=== PATIENT | male | born 1935 | race African-American/Black ===

== ENCOUNTER 2017-06-29 10:37 | Inpatient (IN) | payer MEDICARE ==
[~2017-06-29] VITALS: Ht 188 cm; Wt 81.9 kg
[2017-06-29 11:01] VITALS: BP 127/69; PULSE 78; RESP 15; TEMP 100.7; O2SAT 97
[2017-06-29 11:05] VITALS: BP 127/69; PULSE 78; RESP 15; TEMP 100.7; O2SAT 97
--- NOTE | 2017-06-29 11:13 | PD ---
HPI Chief Complaint: General Weakness Time Seen by Provider: 10:46 Travel History International Travel<30 days: No Contact w/Intl Traveler<30days: No Traveled to known affect area: No History of Present Illness HPI 81yo M with PMH of dementia, pace maker, HTN, DM brought in by daughter for multiple falls. Pt has been having generalized weakness and found on the floor at 4am this morning. Daughter said usually he is able to walk with walker but today, she had to physically assist him and he fell another time, an hour prior to arrival. Pt is AAOx2. Denies any chest pain, sob, n/v, abdominal pain, dysuria, hematuria, focal weakness or numbness. Pt found to have low fever here. PFSH Past Medical History Cardiovascular Problems: Yes (PACEMAKER) Diabetes: Yes Social History Tobacco Use: No Allergies-Medications (Allergen,Severity, Reaction): Coded Allergies: No Known Allergies (Unverified , 06/29/17) Reported Meds & Prescriptions Reported Meds & Active Scripts Active Reported Lopressor (Metoprolol Tartrate) 50 Mg Tab 25 Mg PO BID Eliquis (Apixaban) 5 Mg Tab 5 Mg PO DAILY Senna-Tabs (Sennosides) 8.6 Mg Tab 8.6 Mg PO HS Review of Systems Except as stated in HPI: all other systems reviewed are Neg Physical Exam Narrative GENERAL: 81yo M in mild distress. SKIN: Focused skin assessment warm/dry. HEAD: Atraumatic. Normocephalic. EYES: Pupils equal and round. No scleral icterus. No injection or drainage. ENT: No nasal bleeding or discharge. Mucous membranes pink and moist. NECK: Trachea midline. No JVD. CARDIOVASCULAR: Regular rate and rhythm. No murmur appreciated. RESPIRATORY: No accessory muscle use. Clear to auscultation. Breath sounds equal bilaterally. GASTROINTESTINAL: Abdomen soft, non-tender, nondistended. MUSCULOSKELETAL: No obvious deformities. No clubbing. No cyanosis. No edema. NEUROLOGICAL: Awake and alert. No obvious cranial nerve deficits. Motor grossly within normal limits. Normal speech. Data Data Last Documented VS Vital Signs Date Time Temp Pulse Resp B/P (MAP) Pulse Ox O2 Delivery O2 Flow Rate FiO2 06/29/17 11:05 100.7 78 15 127/69 (88) 97 Room Air Orders Orders Complete Blood Count With Diff (06/29/17 11:01) Comprehensive Metabolic Panel (06/29/17 11:01) Prothrombin Time / Inr (Pt) (06/29/17 11:01) Act Partial Throm Time (Ptt) (06/29/17 11:01) Troponin I (06/29/17 11:01) Ct Brain W/O Iv Contrast(Rout) (06/29/17 ) Urinalysis - C+S If Indicated (06/29/17 11:01) Magnesium (Mg) (06/29/17 11:01) Lactic Acid Sepsis Protocol (06/29/17 11:13) Blood Culture (06/29/17 11:13) Creatine Kinase (Cpk) (06/29/17 11:13) Acetaminophen (Tylenol) (06/29/17 11:15) Sodium Chlorid 0.9% 500 Ml Inj (Ns 500 M (06/29/17 11:15) CKMB (06/29/17 11:05) CKMB% (06/29/17 11:05) Urine Culture (06/29/17 12:45) Admit Order (Ed Use Only) (06/29/17 13:41) Ceftriaxone Inj (Rocephin Inj) (06/29/17 15:00) Vital Signs (Adult) Q4H (06/29/17 13:36) Activity Oob With Assistance (06/29/17 13:36) Sodium Chlor 0.9% 1000 Ml Inj (Ns 1000 M (06/29/17 14:00) Sodium Chloride 0.9% Flush (Ns Flush) (06/29/17 13:45) Sodium Chloride 0.9% Flush (Ns Flush) (06/29/17 21:00) Acetaminophen (Tylenol) (06/29/17 13:45) Ondansetron Inj (Zofran Inj) (06/29/17 13:45) Temazepam (Restoril) (06/29/17 13:45) Resp Oxygen Arnaldo C Titrat 1-4 L (06/29/17 ) Pt Request For Service (06/29/17 13:36) Enoxaparin Inj (Lovenox Inj) (06/29/17 15:00) Naloxone Inj (Narcan Inj) (06/29/17 13:45) Magnesium Hydroxide Liq (Milk Of Magnesi (06/29/17 13:45) Sennosides (Senokot) (06/29/17 13:45) Bisacodyl Supp (Dulcolax Supp) (06/29/17 13:45) Lactulose Liq (Lactulose Liq) (06/29/17 13:45) Admit To Inpatient (06/29/17 ) Inpatient Certification (06/29/17 ) Blood Glucose Goal (Criteria) (06/29/17 13:36) Hypoglycemia 70 Mg/Dl Or < (06/29/17 13:36) Notify Dr: Other (06/29/17 13:36) Dextrose 50% In Ethel (Vial) Inj (D50w (Vi (06/29/17 13:45) Glucagon Inj (Glucagon Inj) (06/29/17 13:45) Insulin Aspart Supplemtl Scale (Novolog (06/29/17 17:00) Diet 1800 Ada Cons Carb (06/29/17 Lunch) Labs Laboratory Tests Test 06/29/17 11:05 06/29/17 12:45 White Blood Count 10.4 TH/MM3 Red Blood Count 3.44 MIL/MM3 Hemoglobin 10.8 GM/DL Hematocrit 31.3 % Mean Corpuscular Volume 91.0 FL Mean Corpuscular Hemoglobin 31.5 PG Mean Corpuscular Hemoglobin Concent 34.6 % Red Cell Distribution Width 14.2 % Platelet Count 160 TH/MM3 Mean Platelet Volume 9.6 FL Neutrophils (%) (Auto) 83.4 % Lymphocytes (%) (Auto) 6.1 % Monocytes (%) (Auto) 9.6 % Eosinophils (%) (Auto) 0.4 % Basophils (%) (Auto) 0.5 % Neutrophils # (Auto) 8.6 TH/MM3 Lymphocytes # (Auto) 0.6 TH/MM3 Monocytes # (Auto) 1.0 TH/MM3 Eosinophils # (Auto) 0.0 TH/MM3 Basophils # (Auto) 0.1 TH/MM3 CBC Comment DIFF FINAL Differential Comment Prothrombin Time 11.5 SEC Prothromb Time International Ratio 1.1 RATIO Activated Partial Thromboplast Time 29.9 SEC Blood Urea Nitrogen 31 MG/DL Creatinine 1.73 MG/DL Random Glucose 141 MG/DL Total Protein 7.6 GM/DL Albumin 3.2 GM/DL Calcium Level 8.7 MG/DL Magnesium Level 1.7 MG/DL Alkaline Phosphatase 138 U/L Aspartate Amino Transf (AST/SGOT) 25 U/L Alanine Aminotransferase (ALT/SGPT) 15 U/L Total Bilirubin 0.4 MG/DL Sodium Level 138 MEQ/L Potassium Level 4.2 MEQ/L Chloride Level 106 MEQ/L Carbon Dioxide Level 25.3 MEQ/L Anion Gap 7 MEQ/L Estimat Glomerular Filtration Rate 46 ML/MIN Lactic Acid Level 1.1 mmol/L Total Creatine Kinase 692 U/L Creatine Kinase MB 10.3 NG/ML Creatine Kinase MB % 1.5 % Troponin I 0.08 NG/ML Urine Color YELLOW Urine Turbidity HAZY Urine pH 6.0 Urine Specific [place] 1.012 Urine Protein 100 mg/dL Urine Glucose (UA) NEG mg/dL Urine Ketones NEG mg/dL Urine Occult Blood MOD Urine Nitrite NEG Urine Bilirubin NEG Urine Urobilinogen LESS THAN 2.0 MG/DL Urine Leukocyte Esterase LARGE Urine RBC 4 /hpf Urine WBC 58 /hpf Urine Squamous Epithelial Cells <1 /hpf Urine Bacteria MANY /hpf Microscopic Urinalysis Comment CULTURE INDICATED MDM Medical Decision Making Medical Screen Exam Complete: Yes Emergency Medical Condition: Yes Interpretation(s) EKG: Paced rhythm at 76bpm. No concordance. Differential Diagnosis Failure to thrive vs. rhabdomyolysis vs. CVA vs. electrolyte abnormality Narrative Course 81yo M with generalized weakness and 2 fall since this morning. Said he normally walks with walker but today unable to. Pt with low fever at 100.7F here. Pt given acetaminophen 500mg PO. Daughter said pt's and he has been living with her since October 2016. Said she no longer can take care of him. Labs reviewed, no leukocytosis. H/H 10.8/31.3. No prior to compare. Lactic acid normal. BUN/creatinine elevated at 31/1.73. No prior to compare. Troponin mildly elevated at 0.08. Pt has no chest pain or sob but feels generalized weakness. CPK mildly elevated at 692. Pt given NS IVF. CT brain showed cerebral atrophy and chronic ischemic small vessel mastopathy. Discussed with Dr. Sewell and accepted to his service. Diagnosis Primary Impression: UTI (urinary tract infection) Qualified Codes: N39.0 - Urinary tract infection, site not specified; R31.9 - Hematuria, unspecified Additional Impression: DOMINGO (acute kidney injury) Admitting Information Admitting Physician Requests: Admit Paula Gaffney DO Jun 29, 2017 11:13
[2017-06-29] MEDS ORDERED: ACETAMINOPHEN 500 MG CPLT PO ONE (11:15)
[2017-06-29] MEDS ORDERED: SODIUM CHLORID 0.9% 500 ML INJ 500 ML IV ONE (11:15)
[2017-06-29 11:30] LABS: AUTOMATED NEUTROPHIL # 8.6 TH/MM3 (1.8-7.7); BASOPHIL # 0.1 TH/MM3 (0-0.2); BASOPHIL % 0.5 % (0.0-2.0); EOSINOPHIL % 0.4 % (0.0-4.0); HEMATOCRIT 31.3 % (39.0-51.0); HEMO FLAGS DIFF FINAL; LYMPH % 6.1 % (9.0-44.0); LYMPHOCYTE # 0.6 TH/MM3 (1.0-4.8); MEAN CORPUSCULAR HEMOGLOBIN 31.5 PG (27.0-34.0); MEAN CORPUSCULAR HGB CONC 34.6 % (32.0-36.0); MONO % 9.6 % (0.0-8.0); NEUT % 83.4 % (16.0-70.0); PLATELET COUNT 160 TH/MM3 (150-450); RED BLOOD COUNT 3.44 MIL/MM3 (4.50-5.90); RED CELL DISTRIBUTION WIDTH 14.2 % (11.6-17.2); WHITE BLOOD COUNT 10.4 TH/MM3 (4.0-11.0)
[2017-06-29 11:38] LABS: APTT (PATIENT) 29.9 SEC (24.3-30.1); INTERNATIONAL NORMALIZED RATIO 1.1 RATIO; PROTHROMBIN TIME - PATIENT 11.5 SEC (9.8-11.6)
[2017-06-29 11:47] LABS: ALT (GPT) 15 U/L (12-78); ANION GAP 7 MEQ/L (5-15); AST (GOT) 25 U/L (15-37); BICARBONATE 25.3 MEQ/L (21.0-32.0); BLOOD UREA NITROGEN 31 MG/DL (7-18); CHLORIDE 106 MEQ/L (98-107); GLOMERULAR FILTRATION RATE 46 ML/MIN (>89); MAGNESIUM 1.7 MG/DL (1.5-2.5); POTASSIUM 4.2 MEQ/L (3.5-5.1); SODIUM (NA) 138 MEQ/L (136-145)
[2017-06-29 11:51] LABS: ALKALINE PHOSPHATASE 138 U/L (45-117); TOTAL BILIRUBIN ADULT 0.4 MG/DL (0.2-1.0)
--- NOTE | 2017-06-29 12:03 | RADRPT ---
EXAM DATE/TIME: 06/29/2017 11:38 [facility] COMPARISON: No previous studies available for comparison. INDICATIONS : Generalized weakness and unsteady gate for 1 day. RADIATION DOSE: 56.36 CTDIvol (mGy) MEDICAL HISTORY : Diabetes mellitus type 1. Dementia. SURGICAL HISTORY : Pacemaker. ENCOUNTER: Initial ACUITY: 1 day PAIN SCALE: 5/10 LOCATION: cranial TECHNIQUE: Multiple contiguous axial images were obtained of the head. Using automated exposure control and adj ustment of the mA and/or kV according to patient size, radiation dose was kept as low as reasonably a chievable to obtain optimal diagnostic quality images. DICOM format image data is available electro nically for review and comparison. FINDINGS: There is marked central and cortical atrophy with dilatation of ventricular and sulcal spaces. Areas of low-attenuation throughout the white matter. There is no parenchymal hemorrhage, acute infarction or mass lesion identified. There are no extra-axial fluid collections appreciated. The posterior fo ssa is unremarkable with midline fourth ventricle. The portion of the orbits and paranasal sinuses v isualized are unremarkable. CONCLUSION: 1. Cerebral atrophy and chronic ischemic small vessel mastopathy. Roger De Los Santos MD on June 29, 2017 at 12:01 Board Certified Radiologist. This report was verified electronically.
[2017-06-29 12:04] LABS: CKMB 10.3 NG/ML (0.5-3.6)
[2017-06-29 13:16] LABS: BACTERIA, URINE MANY /hpf; BLOOD, URINE MOD (NEG); COMMENT (UR) CULTURE INDICATED; CULTURE IF INDICATED CULTURE INDICATED; GLUCOSE,URINE NEG (NEG); KETONE, URINE NEG (NEG); NITRITE,URINE NEG (NEG); SQUAMOUS EPITHELIAL CELL URINE <1 /hpf (0-5); URINE COLOR YELLOW (YELLW/STRAW)
[2017-06-29] MEDS ORDERED: SODIUM CHLORIDE 0.9% FLUSH 10 ML FLUSH IV FLUSH PRN (13:45)
[2017-06-29] MEDS ORDERED: GLUCAGON 1 MG/ML VIAL OTHER PRN (13:45)
[2017-06-29] MEDS ORDERED: MAGNESIUM HYDROXIDE SUSP 30 ML CUP PO PRN (13:45)
[2017-06-29] MEDS ORDERED: ONDANSETRON HCL 4 MG/2 ML VIAL IVP PRN (13:45)
[2017-06-29] MEDS ORDERED: BISACODYL 10 MG SUPP RECTAL PRN (13:45)
[2017-06-29] MEDS ORDERED: DEXTROSE 50% IN WATER 50 ML VIAL(D50) IV PUSH PRN (13:45)
[2017-06-29] MEDS ORDERED: NALOXONE HCL 0.4 MG/ML AMP IV PUSH PRN (13:45)
[2017-06-29] MEDS ORDERED: LACTULOSE SYRUP 20 GM/30 ML CUP PO PRN (13:45)
[2017-06-29] MEDS ORDERED: SENNOSIDES 8.6 MG TAB PO PRN (13:45)
[2017-06-29] MEDS ORDERED: TEMAZEPAM 15 MG CAP PO PRN (13:45)
--- NOTE | 2017-06-29 15:42 | RADRPT ---
EXAM DATE/TIME: 06/29/2017 14:53 [facility] COMPARISON: No previous studies available for comparison. INDICATIONS : Cough. MEDICAL HISTORY : Diabetes mellitus type I. Dementia. SURGICAL HISTORY : Pacemaker. ENCOUNTER: Initial ACUITY: 2 weeks PAIN SCORE: 0/10 LOCATION: Bilateral chest FINDINGS: A single view of the chest demonstrates the lungs to be symmetrically aerated without evidence of mas s, infiltrate or effusion. Uestionable nodule right upper lobe. Status post median sternotomy. Left-s ided pacemaker with 2 intact leads. The cardiomediastinal contours are unremarkable. Osseous structu res are intact. CONCLUSION: 1. No infiltrate. 2. Questionable nodule right upper lobe could be scapular density. Recommend PA and lateral views fro m earlier characterization. 3. Left-sided pacemaker and previous median sternotomy. Roger De Los Santos MD on June 29, 2017 at 15:39 Board Certified Radiologist. This report was verified electronically.
[2017-06-29 16:05] VITALS: BP 163/74; PULSE 82; RESP 18; TEMP 99.4; O2SAT 93
--- NOTE | 2017-06-29 16:11 | HHI.HP ---
HPI Service [facility] Primary Care Physician No Primary Care Physician Admission Diagnosis DOMINGO, UTI Diagnoses: Chief Complaint: Dementia, falls Travel History International Travel<30 Days: No Contact w/Intl Traveler <30 Da: No Traveled to Known Affected Are: No History of Present Illness Mr. Adams is a 81 year old male with a history of dementia, pacemaker, HTN, DM brought in by daughter for multiple falls. He has been having generalized weakness for two days prior to this admission. He has had some cough. No chest pain, no shortness of breath. He did have runny nose. Patient wakes up and follows commands but does not participate in this conversation much. Daughter at bedside. Patient did not have any dysuria, hematuria, changes in bowel or bladder habits. Review of Systems Except as stated in HPI: all other systems reviewed are Neg Past Family Social History Past Medical History Dementia Diabetes mellitus CAD s/p CABG. Knee surgery Prostate surgery Toes amputation. Past Surgical History CABG Pacemaker placement. Allergies: Coded Allergies: No Known Allergies (Unverified , 06/29/17) Family History No family history of Alzheimer's dementia. Social History Does not smoke, drink alcohol or illicit drugs. Physical Exam Vital Signs Vital Signs Date Time Temp Pulse Resp B/P (MAP) Pulse Ox O2 Delivery O2 Flow Rate FiO2 06/29/17 11:05 100.7 78 15 127/69 (88) 97 Room Air 06/29/17 11:01 100.7 78 15 127/69 (88) 97 Physical Exam GENERAL: This is a well-nourished, well-developed patient, in no apparent distress. SKIN: No rashes, ecchymoses or lesions. Cool and dry. HEAD: Atraumatic. Normocephalic. No temporal or scalp tenderness. EYES: Pupils equal round and reactive. Extraocular motions intact. No scleral icterus. No injection or drainage. ENT: Nose without bleeding, purulent drainage or septal hematoma. Throat without erythema, tonsillar hypertrophy or exudate. Uvula midline. Airway patent. NECK: Trachea midline. No JVD or lymphadenopathy. Supple, nontender, no meningeal signs. CARDIOVASCULAR: Regular rate and rhythm without murmurs, gallops, or rubs. RESPIRATORY: Clear to auscultation. Breath sounds equal bilaterally. No wheezes , rales, or rhonchi. GASTROINTESTINAL: Abdomen soft, non-tender, nondistended. No hepato-splenomegaly , or palpable masses. No guarding. MUSCULOSKELETAL: Extremities without clubbing, cyanosis, or edema. No joint tenderness, effusion, or edema noted. No calf tenderness. Negative Homans sign bilaterally. NEUROLOGICAL: Awake and alert. Cranial nerves II through XII intact. Motor and sensory grossly within normal limits. Five out of 5 muscle strength in all muscle groups. Normal speech. Laboratory Laboratory Tests Test 06/29/17 11:05 06/29/17 12:45 White Blood Count 10.4 Red Blood Count 3.44 Hemoglobin 10.8 Hematocrit 31.3 Mean Corpuscular Volume 91.0 Mean Corpuscular Hemoglobin 31.5 Mean Corpuscular Hemoglobin Concent 34.6 Red Cell Distribution Width 14.2 Platelet Count 160 Mean Platelet Volume 9.6 Neutrophils (%) (Auto) 83.4 Lymphocytes (%) (Auto) 6.1 Monocytes (%) (Auto) 9.6 Eosinophils (%) (Auto) 0.4 Basophils (%) (Auto) 0.5 Neutrophils # (Auto) 8.6 Lymphocytes # (Auto) 0.6 Monocytes # (Auto) 1.0 Eosinophils # (Auto) 0.0 Basophils # (Auto) 0.1 CBC Comment DIFF FINAL Differential Comment Prothrombin Time 11.5 Prothromb Time International Ratio 1.1 Activated Partial Thromboplast Time 29.9 Blood Urea Nitrogen 31 Creatinine 1.73 Random Glucose 141 Total Protein 7.6 Albumin 3.2 Calcium Level 8.7 Magnesium Level 1.7 Alkaline Phosphatase 138 Aspartate Amino Transf (AST/SGOT) 25 Alanine Aminotransferase (ALT/SGPT) 15 Total Bilirubin 0.4 Sodium Level 138 Potassium Level 4.2 Chloride Level 106 Carbon Dioxide Level 25.3 Anion Gap 7 Estimat Glomerular Filtration Rate 46 Lactic Acid Level 1.1 Total Creatine Kinase 692 Creatine Kinase MB 10.3 Creatine Kinase MB % 1.5 Troponin I 0.08 Urine Color YELLOW Urine Turbidity HAZY Urine pH 6.0 Urine Specific [place] 1.012 Urine Protein 100 Urine Glucose (UA) NEG Urine Ketones NEG Urine Occult Blood MOD Urine Nitrite NEG Urine Bilirubin NEG Urine Urobilinogen LESS THAN 2.0 Urine Leukocyte Esterase LARGE Urine RBC 4 Urine WBC 58 Urine Squamous Epithelial Cells <1 Urine Bacteria MANY Microscopic Urinalysis Comment CULTURE INDICATED Date/Time Source Procedure Growth Status 06/29/17 11:05 Blood Peripheral Aerobic Blood Culture Pending Received 06/29/17 11:05 Blood Peripheral Anaerobic Blood Culture Pending Received 06/29/17 12:45 Urine Clean Catch Urine Culture Pending Received Result Diagram: 06/29/17 1105 06/29/17 1105 Imaging Last Impressions Head CT 06/29/17 0000 Signed Impressions: Service Date/Time: Thursday, June 29, 2017 11:38 - CONCLUSION: 1. Cerebral atrophy and chronic ischemic small vessel mastopathy. Roger De Los Santos MD Chest X-Ray 06/29/17 0000 Signed Impressions: Service Date/Time: Thursday, June 29, 2017 14:53 - CONCLUSION: 1. No infiltrate. 2. Questionable nodule right upper lobe could be scapular density. Recommend PA and lateral views from earlier characterization. 3. Left-sided pacemaker and previous median sternotomy. Roger De Los Santos MD Caprini VTE Risk Assessment Caprini VTE Risk Assessment: Mod/High Risk (score >= 2) Caprini Risk Assessment Model Point Value = 1 Point Value = 2 Point Value = 3 Point Value = 5 Age 41-60 Minor surgery BMI > 25 kg/m2 Swollen legs Varicose veins or History of unexplained or recurrent spontaneous Oral contraceptives or hormone replacement Sepsis (< 1 month) Serious lung disease, including pneumonia (< 1 month) Abnormal pulmonary function Acute myocardial infarction Congestive heart failure (< 1 month) History of inflammatory bowel disease Medical patient at bed rest Age 61-74 Arthroscopic surgery Major open surgery (> 45 min) Laparoscopic surgery (> 45 min) Malignancy Confined to bed (> 72 hours) Immobilizing plaster cast Central venous access Age >= 75 History of VTE Family history of VTE Factor V Leiden Prothrombin [id number] Lupus anticoagulant Anticardiolipin antibodies Elevated serum homocysteine Heparin-induced thrombocytopenia Other congenital or acquired thrombophilia Stroke (< 1 month) Elective arthroplasty Hip, pelvis, or leg fracture Acute spinal cord injury (< 1 month) Prophylaxis Regimen Total Risk Factor Score Risk Level Prophylaxis Regimen 0-1 Low Early ambulation 2 Moderate Order ONE of the following: *Sequential Compression Device (SCD) *Heparin 5000 units SQ BID 3-4 Higher Order ONE of the following medications: *Heparin 5000 units SQ TID *Enoxaparin/Lovenox 40 mg SQ daily (WT < 150 kg, CrCl > 30 mL/min) *Enoxaparin/Lovenox 30 mg SQ daily (WT < 150 kg, CrCl > 10-29 mL/min) *Enoxaparin/Lovenox 30 mg SQ BID (WT < 150 kg, CrCl > 30 mL/min) AND/OR *Sequential Compression Device (SCD) 5 or more Highest Order ONE of the following medications: *Heparin 5000 units SQ TID (Preferred with Epidurals) *Enoxaparin/Lovenox 40 mg SQ daily (WT < 150 kg, CrCl > 30 mL/min) *Enoxaparin/Lovenox 30 mg SQ daily (WT < 150 kg, CrCl > 10-29 mL/min) *Enoxaparin/Lovenox 30 mg SQ BID (WT < 150 kg, CrCl > 30 mL/min) AND *Sequential Compression Device (SCD) Assessment and Plan Problem List: (1) Diabetes mellitus ICD Code: E11.9 - Type 2 diabetes mellitus without complications (2) Dementia ICD Code: F03.90 - Unspecified dementia without behavioral disturbance (3) Fall ICD Code: W19.XXXA - Unspecified fall, initial encounter (4) UTI (urinary tract infection) ICD Code: N39.0 - Urinary tract infection, site not specified Assessment and Plan Mr. Adams is a pleasant 81 year old male with a history of dementia, Diabetes mellitus who presents to the ED today due to generalized weakness for 2 days, falls and acute mental status change. - Acute encephalopathy - Generalized weakness - Possibly related infectious etiology such as UTI. - Will start patient on Ceftriaxone 1g Q24hrs. - Continue NS @100cc/hour. - Probable Urinary tract infection - Will start Ceftriaxone empirically. - Follow Urine C & S. - Diabetes mellitus - Continue Sliding scale insulin. Start Levemir 10 units QHS. Full code. Lovenox 40mg Q24hrs. Physician Certification 2 Midnight Certification Type: Admission for Inpatient Services Order for Inpatient Services The services are ordered in accordance with Medicare regulations or non- Medicare payer requirements, as applicable. In the case of services not specified as inpatient-only, they are appropriately provided as inpatient services in accordance with the 2-midnight benchmark. Estimated LOS (days): 2 days is the estimated time the patient will need to remain in the hospital, assuming treatment plan goals are met and no additional complications. Post-Hospital Plan: Not yet determined Camilla Sewell DO Jun 29, 2017 16:11
[2017-06-29] MEDS: SODIUM CHLOR 0.9% 1000 ML INJ 1,000 ML IV SCH (16:26)
[2017-06-29] MEDS: cefTRIAXone INJ 1,000 MG in SODIUM CHLORIDE 0.9% INJ 100 ML IV SCH (16:27)
[2017-06-29 16:30] VITALS: BP 124/69
[2017-06-29] MEDS: INSULIN ASPART SUPPLEMENTAL SCALE SQ SCH ×2 (17:00→21:00)
[2017-06-29] MEDS: ENOXAPARIN SODIUM 40 MG/0.4 ML SYRINGE SQ SCH (18:38)
[2017-06-29 20:30] VITALS: BP 176/78; PULSE 84; RESP 18; TEMP 100.2; O2SAT 97
[2017-06-29] MEDS: SODIUM CHLORIDE 0.9% FLUSH 10 ML FLUSH IV FLUSH SCH (21:00)
[2017-06-29] MEDS: INSULIN DETEMIR 100 UNITS/ML VIAL SQ SCH (21:00)
[2017-06-29] MEDS ORDERED: SENN8.6T36 PO (23:23)
[2017-06-29] MEDS ORDERED: APIX5TAB PO (23:24)
[2017-06-29] MEDS ORDERED: METO-309 PO (23:25)
[2017-06-30] VITALS (8 sets, daily range): BP systolic 117–179; BP diastolic 67–85; PULSE 64–87; RESP 17–20; TEMP 97.2–101.5; O2SAT 95–98
[2017-06-30] MEDS ORDERED: MONT10TA4 PO (01:03)
[2017-06-30] MEDS ORDERED: ALPR.25 PO (01:03)
[2017-06-30] MEDS ORDERED: LISI10TA3 PO (01:03)
[2017-06-30] MEDS ORDERED: FERR325T18 PO (01:03)
[2017-06-30] MEDS ORDERED: AMLO10TA2 PO (01:03)
[2017-06-30] MEDS ORDERED: FLUT1SPR5 EACH NARE (01:03)
[2017-06-30] MEDS ORDERED: DONE10TA7 PO (01:03)
[2017-06-30] MEDS ORDERED: LEXA10TA PO (01:03)
[2017-06-30] MEDS ORDERED: TAMS0.4C4 PO (01:03)
[2017-06-30] MEDS ORDERED: ALLO100T PO (01:03)
[2017-06-30] MEDS: ACETAMINOPHEN 325 MG TAB PO PRN ×2 (04:11→17:28)
[2017-06-30] MEDS: SENNOSIDES 8.6 MG TAB PO SCH (04:12)
[2017-06-30] MEDS: INSULIN ASPART SUPPLEMENTAL SCALE SQ SCH ×4 (08:00→20:33)
[2017-06-30 08:43] LABS: AUTOMATED NEUTROPHIL # 4.5 TH/MM3 (1.8-7.7); BASOPHIL % 0.6 % (0.0-2.0); EOSINOPHIL % 0.6 % (0.0-4.0); HEMATOCRIT 27.5 % (39.0-51.0); HEMO FLAGS DIFF FINAL; LYMPH % 14.5 % (9.0-44.0); LYMPHOCYTE # 0.9 TH/MM3 (1.0-4.8); MEAN CELL VOLUME 89.6 FL (80.0-100.0); MEAN CORPUSCULAR HEMOGLOBIN 31.1 PG (27.0-34.0); MEAN CORPUSCULAR HGB CONC 34.7 % (32.0-36.0); MONO % 14.1 % (0.0-8.0); NEUT % 70.2 % (16.0-70.0); PLATELET COUNT 142 TH/MM3 (150-450); RED BLOOD COUNT 3.07 MIL/MM3 (4.50-5.90); WHITE BLOOD COUNT 6.4 TH/MM3 (4.0-11.0)
[2017-06-30] MEDS: SODIUM CHLORIDE 0.9% FLUSH 10 ML FLUSH IV FLUSH SCH ×2 (09:00→20:32)
[2017-06-30 09:03] LABS: BICARBONATE 22.6 MEQ/L (21.0-32.0); POTASSIUM 3.4 MEQ/L (3.5-5.1)
[2017-06-30] MEDS: FLUTICASONE PROPIONATE 50 MCG/ACT 16 GM NASAL SPRAY EACH NARE SCH ×2 (09:56→20:34)
[2017-06-30] MEDS: SODIUM CHLOR 0.9% 1000 ML INJ 1,000 ML IV SCH ×3 (10:00→16:52)
[2017-06-30] MEDS: ALLOPURINOL 100 MG TAB PO SCH (10:10)
[2017-06-30] MEDS: ESCITALOPRAM OXALATE 10 MG TAB PO SCH (10:11)
[2017-06-30] MEDS: FERROUS SULFATE 325 MG (65 MG ELEMENTAL IRON) TAB PO SCH ×2 (10:11→16:53)
[2017-06-30] MEDS: LISINOPRIL 10 MG TAB PO SCH (10:12)
[2017-06-30] MEDS: METOPROLOL TARTRATE 25 MG TAB PO SCH ×2 (10:12→20:33)
--- NOTE | 2017-06-30 10:54 | HHI.PR ---
Subjective Remarks Follow-up for UTI, generalized weakness. Patient is resting in bed. Daughter is at bedside who states that patient is actually doing better. His cough is getting better. Patient continues to have persistent low-grade fever. Objective Vitals Vital Signs Date Time Temp Pulse Resp B/P (MAP) Pulse Ox O2 Delivery O2 Flow Rate FiO2 06/30/17 04:00 100.2 78 18 179/77 (111) 96 06/30/17 00:00 100.9 80 17 173/76 (108) 96 06/29/17 20:30 100.2 84 18 176/78 (110) 97 06/29/17 16:30 72 16 124/69 (87) 96 06/29/17 16:05 99.4 82 18 163/74 (103) 93 06/29/17 11:05 100.7 78 15 127/69 (88) 97 Room Air 06/29/17 11:01 100.7 78 15 127/69 (88) 97 I/O 06/29/17 06/29/17 06/29/17 06/30/17 06/30/17 06/30/17 07:00 15:00 23:00 07:00 15:00 23:00 Intake Total 500 ml 120 ml Output Total 300 ml 200 ml 200 ml Balance 500 ml -180 ml -200 ml -200 ml Intake Oral 120 ml IV Total 500 ml Output Urine Total 300 ml 200 ml 200 ml # Voids 1 # Bowel Movements 0 Result Diagram: 06/30/17 0805 06/30/17 0805 Imaging Last Impressions Head CT 06/29/17 0000 Signed Impressions: Service Date/Time: Thursday, June 29, 2017 11:38 - CONCLUSION: 1. Cerebral atrophy and chronic ischemic small vessel mastopathy. Roger De Los Santos MD Chest X-Ray 06/29/17 0000 Signed Impressions: Service Date/Time: Thursday, June 29, 2017 14:53 - CONCLUSION: 1. No infiltrate. 2. Questionable nodule right upper lobe could be scapular density. Recommend PA and lateral views from earlier characterization. 3. Left-sided pacemaker and previous median sternotomy. Roger De Los Santos MD Objective Remarks GENERAL: Alert, NAD. SKIN: Warm and dry. HEAD: Normocephalic. EYES: No scleral icterus. No injection or drainage. NECK: Supple, trachea midline. No JVD or lymphadenopathy. CARDIOVASCULAR: Regular rate and rhythm without murmurs, gallops, or rubs. RESPIRATORY: Breath sounds equal bilaterally. No accessory muscle use. GASTROINTESTINAL: Abdomen soft, non-tender, nondistended. MUSCULOSKELETAL: No cyanosis, or edema. BACK: Nontender without obvious deformity. No CVA tenderness. Procedures None. A/P Problem List: (1) Diabetes mellitus ICD Code: E11.9 - Type 2 diabetes mellitus without complications (2) Dementia ICD Code: F03.90 - Unspecified dementia without behavioral disturbance (3) Fall ICD Code: W19.XXXA - Unspecified fall, initial encounter (4) UTI (urinary tract infection) ICD Code: N39.0 - Urinary tract infection, site not specified Assessment and Plan Mr. Adams is a pleasant 81 year old male with a history of dementia, Diabetes mellitus who presents to the ED today due to generalized weakness for 2 days, falls and acute mental status change. - Acute encephalopathy - Generalized weakness - Possibly related infectious etiology such as UTI. - Continue Ceftriaxone 1g Q24hrs. - Continue NS @100cc/hour. - Probable bronchitis - Persistent fever - Obtain Flu screen. - Will empirically start Levaquin 750mg Qday. - Probable Urinary tract infection - Cotninue Ceftriaxone empirically. - Follow Urine C & S. - Diabetes mellitus - Continue Sliding scale insulin. Levemir 10 units QHS. Full code. Lovenox 40mg Q24hrs. Camilla Sewell DO Jun 30, 2017 10:54 am
[2017-06-30] MEDS: LEVOFLOXACIN 750 MG TAB PO SCH (11:51)
--- NOTE | 2017-06-30 14:18 | EKG ---
Date Performed: 06/29/2017 Time Performed: 10:46:52 PTAGE: 81 years EK% AV SEQUENTIAL PACING ABNORMAL RHYTHM ECG NO PREVIOUS TRACING DOCTOR: Ovidio Camejo Interpretating Date/Time 06/30/2017 14:17:07
[2017-06-30] MEDS: cefTRIAXone INJ 1,000 MG in SODIUM CHLORIDE 0.9% INJ 100 ML IV SCH (15:03)
[2017-06-30] MEDS: ENOXAPARIN SODIUM 40 MG/0.4 ML SYRINGE SQ SCH (15:07)
[2017-06-30] MEDS: BENZOCAINE 6 MG/MENTHOL 10 MG LOZENGE BUCCAL PRN (16:54)
[2017-06-30] MEDS: DONEPEZIL HCL 5 MG TAB PO SCH (20:32)
[2017-06-30] MEDS: TAMSULOSIN HCL 0.4 MG CAP PO SCH (20:32)
[2017-06-30] MEDS: MONTELUKAST SODIUM 10 MG TAB PO SCH (20:33)
[2017-06-30] MEDS: INSULIN DETEMIR 100 UNITS/ML VIAL SQ SCH (20:34)
[2017-07-01] VITALS (10 sets, daily range): BP systolic 135–165; BP diastolic 66–79; PULSE 59–67; RESP 18–19; TEMP 97.3–99.9; O2SAT 96–98
[2017-07-01] MEDS: SODIUM CHLOR 0.9% 1000 ML INJ 1,000 ML IV SCH (03:31)
[2017-07-01] MEDS: SODIUM CHLORIDE 0.9% FLUSH 10 ML FLUSH IV FLUSH SCH ×2 (07:47→20:13)
[2017-07-01] MEDS: INSULIN ASPART SUPPLEMENTAL SCALE SQ SCH ×4 (07:47→20:12)
[2017-07-01] MEDS: LISINOPRIL 10 MG TAB PO SCH (07:48)
[2017-07-01] MEDS: LEVOFLOXACIN 750 MG TAB PO SCH (07:48)
[2017-07-01] MEDS: ESCITALOPRAM OXALATE 10 MG TAB PO SCH (07:48)
[2017-07-01] MEDS: ALLOPURINOL 100 MG TAB PO SCH (07:48)
[2017-07-01] MEDS: FERROUS SULFATE 325 MG (65 MG ELEMENTAL IRON) TAB PO SCH ×2 (07:48→17:31)
[2017-07-01] MEDS: METOPROLOL TARTRATE 25 MG TAB PO SCH ×2 (07:49→20:13)
[2017-07-01] MEDS: FLUTICASONE PROPIONATE 50 MCG/ACT 16 GM NASAL SPRAY EACH NARE SCH ×2 (07:49→20:14)
[2017-07-01] MEDS ORDERED: LEVA500T33 PO (09:25)
[2017-07-01] MEDS ORDERED: ALPR.25 PO (09:25)
--- NOTE | 2017-07-01 14:39 | HHI.PR ---
Subjective Remarks Follow-up for UTI, generalized weakness. Patient is doing well. He is more alert today. Denies any acute concerns. No chest pain, shortness of breath, fever or chills. Objective Vitals Vital Signs Date Time Temp Pulse Resp B/P (MAP) Pulse Ox O2 Delivery O2 Flow Rate FiO2 07/01/17 11:40 99.0 59 18 140/66 (90) 98 07/01/17 08:49 61 07/01/17 07:39 98.5 65 19 157/72 (100) 98 07/01/17 04:30 98.8 62 18 135/67 (89) 96 07/01/17 00:30 65 07/01/17 00:15 99.9 60 18 145/66 (92) 96 06/30/17 21:15 100.3 64 17 146/67 (93) 97 06/30/17 20:40 68 06/30/17 16:29 101.5 68 20 173/78 (109) 95 I/O 06/30/17 06/30/17 06/30/17 07/01/17 07/01/17 07/01/17 07:00 15:00 23:00 07:00 15:00 23:00 Intake Total 1222 ml 1301 ml Output Total 200 ml 200 ml 400 ml Balance -200 ml -200 ml 1222 ml 901 ml Intake Oral 620 ml 500 ml IV Total 602 ml 801 ml Output Urine Total 200 ml 200 ml 400 ml # Voids 1 3 4 # Bowel Movements 0 0 0 Result Diagram: 06/30/17 0806/30/17 0805 Imaging Last Impressions Head CT 06/29/17 0000 Signed Impressions: Service Date/Time: Thursday, June 29, 2017 11:38 - CONCLUSION: 1. Cerebral atrophy and chronic ischemic small vessel mastopathy. Roger De Los Santos MD Chest X-Ray 06/29/17 0000 Signed Impressions: Service Date/Time: Thursday, June 29, 2017 14:53 - CONCLUSION: 1. No infiltrate. 2. Questionable nodule right upper lobe could be scapular density. Recommend PA and lateral views from earlier characterization. 3. Left-sided pacemaker and previous median sternotomy. Roger De Los Santos MD Objective Remarks GENERAL: Alert, NAD. SKIN: Warm and dry. HEAD: Normocephalic. EYES: No scleral icterus. No injection or drainage. NECK: Supple, trachea midline. No JVD or lymphadenopathy. CARDIOVASCULAR: Regular rate and rhythm without murmurs, gallops, or rubs. RESPIRATORY: Breath sounds equal bilaterally. No accessory muscle use. GASTROINTESTINAL: Abdomen soft, non-tender, nondistended. MUSCULOSKELETAL: No cyanosis, or edema. BACK: Nontender without obvious deformity. No CVA tenderness. Procedures None. A/P Problem List: (1) Diabetes mellitus ICD Code: E11.9 - Type 2 diabetes mellitus without complications (2) Dementia ICD Code: F03.90 - Unspecified dementia without behavioral disturbance (3) Fall ICD Code: W19.XXXA - Unspecified fall, initial encounter (4) UTI (urinary tract infection) ICD Code: N39.0 - Urinary tract infection, site not specified Assessment and Plan Mr. Adams is a pleasant 81 year old male with a history of dementia, Diabetes mellitus who presents to the ED today due to generalized weakness for 2 days, falls and acute mental status change. - Acute encephalopathy - Generalized weakness - Possibly related infectious etiology such as UTI. - Discontinue IV fluid. Continue antibiotics. - Probable bronchitis - Persistent fever - Influenza A and B screening negative - Continue Levaquin by mouth. - Probable Urinary tract infection - Urine culture shows Klebsiella pansensitive. - We'll continue Levaquin for both bronchitis and UTI. - Diabetes mellitus - Continue Sliding scale insulin. Levemir 10 units QHS. Will continue these upon discharge. May need to be uptitrated. - Other medications : Patient is on beta karl as well as apixaban probably for atrial fibrillation. We'll continue these medications. Full code. Lovenox 40mg Q24hrs. Camilla Sewell DO Jul 01, 2017 2:39 pm
[2017-07-01] MEDS ORDERED: NOVOLOGP2 SQ (14:43)
[2017-07-01] MEDS: ENOXAPARIN SODIUM 40 MG/0.4 ML SYRINGE SQ SCH (14:57)
[2017-07-01] MEDS: INSULIN DETEMIR 100 UNITS/ML VIAL SQ SCH (20:12)
[2017-07-01] MEDS: SENNOSIDES 8.6 MG TAB PO SCH (20:13)
[2017-07-01] MEDS: MONTELUKAST SODIUM 10 MG TAB PO SCH (20:13)
[2017-07-01] MEDS: DONEPEZIL HCL 5 MG TAB PO SCH (20:13)
[2017-07-01] MEDS: TAMSULOSIN HCL 0.4 MG CAP PO SCH (20:13)
[2017-07-02] VITALS (11 sets, daily range): BP systolic 143–175; BP diastolic 66–84; PULSE 55–81; RESP 17–21; TEMP 97.6–98.4; O2SAT 97–99
[2017-07-02 07:48] LABS: BICARBONATE 23.7 MEQ/L (21.0-32.0); POTASSIUM 3.4 MEQ/L (3.5-5.1)
[2017-07-02] MEDS: FERROUS SULFATE 325 MG (65 MG ELEMENTAL IRON) TAB PO SCH (08:16)
[2017-07-02] MEDS: ESCITALOPRAM OXALATE 10 MG TAB PO SCH (08:16)
[2017-07-02] MEDS: ALLOPURINOL 100 MG TAB PO SCH (08:16)
[2017-07-02] MEDS: LISINOPRIL 10 MG TAB PO SCH (08:16)
[2017-07-02] MEDS: METOPROLOL TARTRATE 25 MG TAB PO SCH (08:16)
[2017-07-02] MEDS: LEVOFLOXACIN 750 MG TAB PO SCH (08:16)
[2017-07-02] MEDS: BENZOCAINE 6 MG/MENTHOL 10 MG LOZENGE BUCCAL PRN ×2 (08:19→11:40)
[2017-07-02] MEDS: SODIUM CHLORIDE 0.9% FLUSH 10 ML FLUSH IV FLUSH SCH (08:20)
[2017-07-02] MEDS: INSULIN ASPART SUPPLEMENTAL SCALE SQ SCH ×2 (08:20→12:30)
[2017-07-02] MEDS: FLUTICASONE PROPIONATE 50 MCG/ACT 16 GM NASAL SPRAY EACH NARE SCH (08:21)
[2017-07-02] MEDS ORDERED: ALPRAZolam 0.25 MG TAB PO PRN (09:15)
[2017-07-02] MEDS ORDERED: LEVEMIR SQ (09:16)
[2017-07-02] MEDS ORDERED: NOVOLOGP2 SQ (09:16)
--- NOTE | 2017-07-02 10:51 | HHI.DS ---
Discharge Summary Admission Date Jun 29, 2017 at 1:42 pm Discharge Date: Jul 02, 2017 Admitting Diagnosis [place], UTI (1) Diabetes mellitus ICD Code: E11.9 - Type 2 diabetes mellitus without complications (2) Dementia ICD Code: F03.90 - Unspecified dementia without behavioral disturbance (3) Fall ICD Code: W19.XXXA - Unspecified fall, initial encounter (4) UTI (urinary tract infection) ICD Code: N39.0 - Urinary tract infection, site not specified Diagnosis: Principal Procedures None. Brief History - From Admission Mr. Adams is a 81 year old male with a history of dementia, pacemaker, HTN, DM brought in by daughter for multiple falls. He has been having generalized weakness for two days prior to this admission. He has had some cough. No chest pain, no shortness of breath. He did have runny nose. Patient wakes up and follows commands but does not participate in this conversation much. Daughter at bedside. Patient did not have any dysuria, hematuria, changes in bowel or bladder habits. CBC/BMP: 06/30/17 0805 07/02/17 0625 Significant Findings Laboratory Tests Test 06/29/17 11:05 06/29/17 12:45 06/30/17 08:05 07/02/17 06:25 Red Blood Count 3.44 MIL/MM3 (4.50-5.90) 3.07 MIL/MM3 (4.50-5.90) Hemoglobin 10.8 GM/DL (13.0-17.0) 9.5 GM/DL (13.0-17.0) Hematocrit 31.3 % (39.0-51.0) 27.5 % (39.0-51.0) Neutrophils (%) (Auto) 83.4 % (16.0-70.0) 70.2 % (16.0-70.0) Lymphocytes (%) (Auto) 6.1 % (9.0-44.0) Monocytes (%) (Auto) 9.6 % (0.0-8.0) 14.1 % (0.0-8.0) Neutrophils # (Auto) 8.6 TH/MM3 (1.8-7.7) Lymphocytes # (Auto) 0.6 TH/MM3 (1.0-4.8) 0.9 TH/MM3 (1.0-4.8) Monocytes # (Auto) 1.0 TH/MM3 (0-0.9) Blood Urea Nitrogen 31 MG/DL (7-18) 27 MG/DL (7-18) 25 MG/DL (7-18) Creatinine 1.73 MG/DL (0.60-1.30) 1.50 MG/DL (0.60-1.30) 1.61 MG/DL (0.60-1.30) Random Glucose 141 MG/DL (74-106) 140 MG/DL (74-106) 186 MG/DL (74-106) Albumin 3.2 GM/DL (3.4-5.0) Alkaline Phosphatase 138 U/L (45-117) Estimat Glomerular Filtration Rate 46 ML/MIN (>89) 55 ML/MIN (>89) 50 ML/MIN (>89) Total Creatine Kinase 692 U/L (39-308) Creatine Kinase MB 10.3 NG/ML (0.5-3.6) Troponin I 0.08 NG/ML (0.02-0.05) Urine Turbidity HAZY (CLEAR) Urine Protein 100 mg/dL (NEG-TRACE) Urine Occult Blood MOD (NEG) Urine Leukocyte Esterase LARGE (NEG) Urine RBC 4 /hpf (0-3) Urine WBC 58 /hpf (0-5) Urine Bacteria MANY /hpf (NONE) Platelet Count 142 TH/MM3 (150-450) Calcium Level 8.0 MG/DL (8.5-10.1) Potassium Level 3.4 MEQ/L (3.5-5.1) 3.4 MEQ/L (3.5-5.1) Chloride Level 110 MEQ/L (98-107) 109 MEQ/L (98-107) Imaging Last Impressions Chest X-Ray 07/02/17 0000 Signed Impressions: Service Date/Time: June 10:22 - CONCLUSION: 1. Questionable nodule projecting over the scapula in the prior study is not clearly identified currently and probably represents superimposition of shadows. 2. However, there does appear be some airspace disease posteriorly in the left hemithorax with partial obscuration of the posterior hemidiaphragm and small associated left-sided effusion. Diagnostic considerations include atelectasis or early infiltrate. 3. Old healed fracture deformity of the posterolateral aspect of the right seventh rib. Prior CABG. Fletcher Alston MD Head CT 06/29/17 0000 Signed Impressions: Service Date/Time: Thursday, June 29, 2017 11:38 - CONCLUSION: 1. Cerebral atrophy and chronic ischemic small vessel mastopathy. Roger De Los Santos MD PE at Discharge GENERAL: Alert, NAD. SKIN: Warm and dry. HEAD: Normocephalic. EYES: No scleral icterus. No injection or drainage. NECK: Supple, trachea midline. No JVD or lymphadenopathy. CARDIOVASCULAR: Regular rate and rhythm without murmurs, gallops, or rubs. RESPIRATORY: Breath sounds equal bilaterally. No accessory muscle use. GASTROINTESTINAL: Abdomen soft, non-tender, nondistended. MUSCULOSKELETAL: No cyanosis, or edema. BACK: Nontender without obvious deformity. No CVA tenderness. Pt update on day of discharge Patient is doing well. He denies any chest pain, SOB, fever, chills. Hospital Course Mr. Adams is a pleasant 81 year old male with a history of dementia, Diabetes mellitus who presents to the ED today due to generalized weakness for 2 days, falls and acute mental status change. - Acute encephalopathy - Generalized weakness - Possibly related infectious etiology such as UTI. - Discontinue IV fluid. Continue antibiotics. - Dementia - Continue Donepezil. Patient can follow up with Neurology in 2-3 weeks after discharge. - Probable bronchitis - Persistent fever - Influenza A and B screening negative - Continue Levaquin by mouth. - Probable Urinary tract infection - Urine culture shows Klebsiella - pansensitive. - We'll continue Levaquin for both bronchitis and UTI. - questionable right upper lobe nodule - Mentioned on AP CXR report. Will get a PA/LAT CXR prior to discharge. - Diabetes mellitus - Continue Sliding scale insulin. Levemir 12units QHS. Will continue these upon discharge. May need to be uptitrated. - Other medications : Patient is on beta karl as well as apixaban probably for atrial fibrillation. We'll continue these medications. Full code. Lovenox 40mg Q24hrs. Pt Condition on Discharge: Good Discharge Disposition: Discharge to SNF Discharge Time: > 30 minutes Discharge Instructions DIET: Follow Instructions for: Diabetic Diet Activities you can perform: Regular-No Restrictions Camilla Sewell DO Jul 02, 2017 10:51 am
--- NOTE | 2017-07-02 10:56 | RADRPT ---
EXAM DATE/TIME: 07/02/2017 10:22 [facility] COMPARISON: CHEST SINGLE AP, June 29, 2017, 14:53. INDICATIONS : Evaluate possible right upper lobe nodule seen on previous chest x-ray. MEDICAL HISTORY : Hypertension. Congestive heart failure. Diabetes mellitus type I. Dementia. SURGICAL HISTORY : Pacemaker. CABG. ENCOUNTER: Subsequent ACUITY: 3 days PAIN SCORE: 0/10 LOCATION: Right upper chest FINDINGS: PA and lateral views of the chest demonstrate slight elevation of the right hemidiaphragm. Questionab le nodule projecting over the right scapula no prior is not clearly identified on the current exam an d probably represents superimposition of shadows. However, there is blunting of the left costophrenic angle and, on the lateral, airspace disease partially obscuring the posterior aspect of the left hem idiaphragm. Heart size is normal. Left subclavian bipolar pacer is radiographically intact. Findings of prior CABG with intact median sternotomy wires. Degenerative spurring of the dorsal spine. Old hea led fracture deformity of the posterolateral aspect of the right seventh rib. Osseous structures are otherwise intact. CONCLUSION: 1. Questionable nodule projecting over the scapula in the prior study is not clearly identified curre ntly and probably represents superimposition of shadows. 2. However, there does appear be some airspace disease posteriorly in the left hemithorax with partia l obscuration of the posterior hemidiaphragm and small associated left-sided effusion. Diagnostic con siderations include atelectasis or early infiltrate. 3. Old healed fracture deformity of the posterolateral aspect of the right seventh rib. Prior CABG. Fletcher Alston MD on July 02, 2017 at 10:49 Board Certified Radiologist. This report was verified electronically.
[2017-07-02] MEDS: ENOXAPARIN SODIUM 40 MG/0.4 ML SYRINGE SQ SCH (15:00)
== END 2017-07-02 17:29 | DRG 689 ==
LOC: NEPC 10:37 → NEDA 13:42 → N05B 16:54
PROVIDERS: ADMIT Hospitalist; ATTEND Hospitalist
DX: N39.0 Urinary tract infection, site not specified (principal); G93.40 Encephalopathy, unspecified; N17.9 Acute kidney failure, unspecified; F03.90 Unspecified dementia, unspecified severity, without behavioral disturbance, psychotic disturbance, mood disturbance, and anxiety; I10 Essential (primary) hypertension; B96.1 Klebsiella pneumoniae [K. pneumoniae] as the cause of diseases classified elsewhere; E11.9 Type 2 diabetes mellitus without complications; J40 Bronchitis, not specified as acute or chronic; I25.10 Atherosclerotic heart disease of native coronary artery without angina pectoris; R29.6 Repeated falls; I48.91 Unspecified atrial fibrillation; Z79.01 Long term (current) use of anticoagulants; Z95.0 Presence of cardiac pacemaker; Z95.1 Presence of aortocoronary bypass graft
CPT/HCPCS: 70450; 71010; 71020; 80048; 80053; 81001; 82550; 82552; 82948; 83605; 83735; 84484; 85025; 85610; 85730; 87040; 87077; 87086; 87186; 87804; 93005; J0696; J1650; J1815; J7030; J7040

== ENCOUNTER 2018-02-05 01:02 | Inpatient (IN) ==
--- NOTE | 2018-02-05 01:41 | ED ---
HPI General Chief Complaint: Shortness of Breath/Dyspnea Stated Complaint: SOB Time Seen by Provider: 02/05/18 01:25 Source: EMS and other (care home report) Mode of arrival: EMS Limitations: altered mental status (History of dementia) History of Present Illness Complaint: shortness of breath Onset (ago): hour(s) (Tonight) Context: recent illness (Diagnosed with pneumonia today and started on Levaquin) Severity: severe (Sats were reportedly in the 70s on the arrival of [facility]) Consistency/Duration: constant Relieving factors: oxygen Exacerbating factors: nothing Treatment prior to arrival: oxygen Related Data Home Medications Medication Instructions Recorded Confirmed acetaminophen [Tylenol] 325 mg PO Q6H PRN 02/05/18 02/05/18 allopurinol 100 mg PO DAILY 02/05/18 02/05/18 amlodipine [Norvasc] 10 mg PO DAILY 02/05/18 02/05/18 apixaban 5 mg PO BID 02/05/18 02/05/18 ascorbic acid (vitamin C) [Vitamin 500 mg PO BID 02/05/18 02/05/18 C] aspirin [Aspir-81] 81 mg PO DAILY 02/05/18 02/05/18 brimonidine 1 drp OPHTHALMIC (EYE) TID 02/05/18 02/05/18 collagenase clostridium histo. 1 applic TOPICAL DAILY 02/05/18 02/05/18 [Santyl] docusate sodium 100 mg PO DAILY 02/05/18 02/05/18 donepezil 10 mg PO DAILY 02/05/18 02/05/18 dorzolamide [Trusopt] 1 drp OPHTHALMIC (EYE) TID 02/05/18 02/05/18 escitalopram oxalate 10 mg PO DAILY 02/05/18 02/05/18 ferrous sulfate 325 mg PO BID 02/05/18 02/05/18 fluticasone 1 spray INTRANASAL DAILY 02/05/18 02/05/18 gabapentin 300 mg PO DAILY 02/05/18 02/05/18 guaifenesin [Poonam-Tussin] 10 ml PO Q6HR PRN 02/05/18 02/05/18 ibuprofen 400 mg PO QID PRN 02/05/18 02/05/18 insulin detemir U-100 20 unit SUB-Q DAILY 02/05/18 02/05/18 insulin lispro 1 sliding scale dose SUB-Q UD 02/05/18 02/05/18 lactobacillus combination no.4 1 tab PO DAILY 02/05/18 02/05/18 [Probiotic] levofloxacin [Levaquin] 500 mg PO DAILY 02/05/18 02/05/18 metoprolol tartrate 25 mg PO DAILY 02/05/18 02/05/18 multivitamin 1 tab PO DAILY 02/05/18 02/05/18 risperidone 0.5 mg PO BID 02/05/18 02/05/18 rosuvastatin [Crestor] 10 mg PO DAILY 02/05/18 02/05/18 silver sulfadiazine [Silvadene] 1 applic TOPICAL DAILY 02/05/18 02/05/18 tamsulosin 0.4 mg PO DAILY 02/05/18 02/05/18 timolol maleate 1 drp OPHTHALMIC (EYE) BID 02/05/18 02/05/18 travoprost [Travatan Z] 1 drp OPHTHALMIC (EYE) QPM 02/05/18 02/05/18 zinc 220 mg PO DAILY 02/05/18 02/05/18 Allergies Allergy/AdvReac Type Severity Reaction Status Date / Time No Known Allergies Allergy Unverified 06/29/17 11:00 Review of Systems ROS Unobtainable All other systems reviewed negative except as stated in HPI [facility] Medical History Medical History A-fib (Acute) Anemia (Acute) BPH (benign prostatic hyperplasia) (Acute) Constipation (Acute) Dementia (Acute) Diabetes mellitus (Acute) Dysphagia (Acute) Falls (Acute) Glaucoma (Acute) Gout (Acute) Hyperlipidemia (Acute) Hypertension (Acute) Muscle weakness (Acute) Pneumonia (Acute) Social History Social History Substance History: Unable to Obtain Second Hand Smoke Exposure: No Smoking Status: Unknown if ever smoked How Often Do You Have a Drink Containing Alcohol: Unable to Obtain Immunization History Tetanus Immunization: Unable to Assess Hx Influenza Vaccine This Season: Unable to Assess Exam Const General: cooperative, comfortable, no acute distress and ill appearing Orientation: alert and awake HENNC Head: normocephalic and atraumatic Eyes General: appearance normal, both eyes and all related structures EOM: EOM intact bilaterally Neck Neck: full ROM and supple Chest Chest: normal inspection of the chest Resp Effort & Inspection: normal respiratory effort Auscultation: clear to auscultation bilaterally (I was only able to listen to his chest anteriorly) Cardio Rate: regular rate Rhythm: regular rhythm GI Inspection: normal to inspection Palpation: soft Skin General: no rashes or lesions noted and turgor normal Neuro General: alert, awake and CN's II-XI intact bilaterally Extrem General: normal to inspection and no pedal edema Psych Appearance: grossly normal Mental Status: mental status grossly normal Course Reevaluation(s) Reevaluation #1: patient much improved with BiPAP Consultations Consultation #1: Dr. Berumen--pt will need to go to unit since he is on BiPAP Time: 03:52 Initial Documented Vital Signs Temperature 99.0 F 02/05/18 01:07 Pulse Rate 83 02/05/18 01:07 Respiratory Rate 24 02/05/18 01:07 Blood Pressure 181/81 H 02/05/18 01:07 Pulse Oximetry 96 02/05/18 01:07 Last Documented Vital Signs Temperature 99.0 F 02/05/18 01:07 Pulse Rate 77 02/05/18 03:15 Respiratory Rate 22 02/05/18 03:15 Blood Pressure 142/69 H 02/05/18 03:15 Pulse Oximetry 100 02/05/18 03:15 Critical Care Time Critical Care Time: Yes Total Critical Care Time: 45 Attestation: Aggregate critical care time was minutes. Time to perform other separately billable procedures was not included in the critical care time. My time did not include minutes spent treating any other patients simultaneously or on activities that did not directly contribute to the patient's treatment. The services I provided to this patient were to treat and/or prevent clinically significant deterioration due to dyspnea, respiratory distress, pulmonary edema and ACS I provided critical care services requiring my management, as noted below: Chart data review, documentation time, medication orders and management, vital sign assessments/reviewing monitor data, ordering and reviewing lab tests, ordering and interpreting/reviewing x-rays and diagnostic studies, care of the patient and discussion of the patient with the admitting physicians Medical Decision Making MDM Narrative Medical decision making narrative: This patient presents to us from a intermediate with the chief complaint of shortness of breath. He was reportedly diagnosed with pneumonia today and started on Levaquin. He was found to have low oxygen sats tonight in the 70s. [facility] was called and he was brought to the hospital. His sats did improve on oxygen. Following laboratory evaluation, the patient was treated for CHF and ACS with an aspirin suppository, IV Lasix and Nitropaste. He is already anticoagulated with Eliquis. Differential Diagnosis Differential Diagnosis: Differential diagnosis of dyspnea includes but is not limited to congestive heart failure, pneumonia, wheezing, pneumothorax, pulmonary embolism Lab Data Lab results reviewed: Yes I reviewed the patient's lab results. Result diagrams: 02/05/18 01:30 02/05/18 01:30 Lab Results 02/05/18 02/05/18 02/05/18 Range/Units 01:30 01:30 01:30 WBC 15.6 H (4.0-11.0) th/mm3 RBC 3.21 L (4.50-5.90) mil/mm3 Hgb 9.5 L (13.0-17.0) gm/dL Hct 29.1 L (39.0-51.0) % MCV 90.7 (80.0-100.0) fL MCH 29.7 (27.0-34.0) pg MCHC 32.8 (32.0-36.0) % RDW 14.1 (11.6-17.2) % Plt Count 214 (150-450) th/mm3 MPV 9.1 (7.0-11.0) fL Neut % (Auto) 89.0 H (16.0-70.0) % Lymph % (Auto) 4.9 L (9.0-44.0) % [place] % (Auto) 5.7 (0.0-8.0) % Eos % (Auto) 0.1 (0.0-4.0) % Baso % (Auto) 0.3 (0.0-2.0) % Neut # (Auto) 13.8 H (1.8-7.7) th/mm3 Lymph # (Auto) 0.8 L (1.0-4.8) th/mm3 [place] # (Auto) 0.9 (0.0-0.9) th/mm3 Eos # (Auto) 0.0 (0.0-0.4) th/mm3 Baso # (Auto) 0.0 (0.0-0.2) th/mm3 WBC Differential . Differential Comment Auto diff final PT (9.8-11.6) sec INR Ratio APTT (24.3-30.1) sec Sodium 140 (136-145) meq/L Potassium 5.5 H (3.5-5.1) meq/L Chloride 110 H (98-107) meq/L Carbon Dioxide 22.4 (21.0-32.0) meq/L Anion Gap 8 (5-15) meq/L BUN 50 H (7-18) mg/dL Creatinine 2.67 H (0.60-1.30) mg/dL Estimated GFR 28 L (>89) mL/min Random Glucose 142 H (74-106) mg/dL Lactic Acid (0.4-2.0) mmol/L Calcium 8.9 (8.5-10.1) mg/dL Total Bilirubin 0.3 (0.2-1.0) mg/dL AST 33 (15-37) U/L ALT 28 (12-78) U/L Alkaline Phosphatase 147 H (45-117) U/L Troponin I 1.07 H* (0.02-0.05) ng/mL B-Natriuretic Peptide (0-100) pg/mL Total Protein 8.6 H D (6.4-8.2) g/dL Albumin 3.1 L (3.4-5.0) g/dL 02/05/18 02/05/18 02/05/18 Range/Units 01:30 03:10 03:10 WBC (4.0-11.0) th/mm3 RBC (4.50-5.90) mil/mm3 Hgb (13.0-17.0) gm/dL Hct (39.0-51.0) % MCV (80.0-100.0) fL MCH (27.0-34.0) pg MCHC (32.0-36.0) % RDW (11.6-17.2) % Plt Count (150-450) th/mm3 MPV (7.0-11.0) fL Neut % (Auto) (16.0-70.0) % Lymph % (Auto) (9.0-44.0) % [place] % (Auto) (0.0-8.0) % Eos % (Auto) (0.0-4.0) % Baso % (Auto) (0.0-2.0) % Neut # (Auto) (1.8-7.7) th/mm3 Lymph # (Auto) (1.0-4.8) th/mm3 [place] # (Auto) (0.0-0.9) th/mm3 Eos # (Auto) (0.0-0.4) th/mm3 Baso # (Auto) (0.0-0.2) th/mm3 WBC Differential Differential Comment PT 11.4 (9.8-11.6) sec INR 1.1 Ratio APTT 27.7 (24.3-30.1) sec Sodium (136-145) meq/L Potassium (3.5-5.1) meq/L Chloride (98-107) meq/L Carbon Dioxide (21.0-32.0) meq/L Anion Gap (5-15) meq/L BUN (7-18) mg/dL Creatinine (0.60-1.30) mg/dL Estimated GFR (>89) mL/min Random Glucose (74-106) mg/dL Lactic Acid 1.2 (0.4-2.0) mmol/L Calcium (8.5-10.1) mg/dL Total Bilirubin (0.2-1.0) mg/dL AST (15-37) U/L ALT (12-78) U/L Alkaline Phosphatase (45-117) U/L Troponin I (0.02-0.05) ng/mL B-Natriuretic Peptide 944 H (0-100) pg/mL Total Protein (6.4-8.2) g/dL Albumin (3.4-5.0) g/dL Imaging Data Radiologist's impression: Chest X-Ray 02/05/18 01:27 CONCLUSION: Mild consolidation and small effusions at each lung base probably related to mild failure. ECG Data EKG Prior to Arrival: No Attestation: I personally reviewed and interpreted this ECG as follows: (Paced rhythm with no acute ischemic changes) Discharge Plan Discharge Disposition Patient Disposition: 30 Still Patient Discharge Condition Condition: Fair Discharge Details Diagnosis: Acute dyspnea, Pulmonary edema, ACS (acute coronary syndrome) Physicians Team ED Provider: Estefany Cleary Primary Care Provider: Lilian Felix Rxs /Orders / Referrals /Forms Prescriptions: No Action allopurinol 100 mg Tablet 100 mg PO DAILY RF: 0 aspirin [Aspir-81] 81 mg Tablet,Delayed Release (Dr/Ec) 81 mg PO DAILY RF: 0 brimonidine 0.2 % Drops 1 drp OPHTHALMIC (EYE) TID RF: 0 docusate sodium 100 mg Capsule 100 mg PO DAILY RF: 0 rosuvastatin [Crestor] 10 mg Tablet 10 mg PO DAILY RF: 0 apixaban 5 mg Tablet 5 mg PO BID RF: 0 donepezil 10 mg Tablet 10 mg PO DAILY RF: 0 ferrous sulfate 325 mg (65 mg iron) Tablet 325 mg PO BID RF: 0 fluticasone 50 mcg/actuation [place],Suspension 1 spray INTRANASAL DAILY RF: 0 escitalopram oxalate 10 mg Tablet 10 mg PO DAILY RF: 0 multivitamin Tablet 1 tab PO DAILY RF: 0 silver sulfadiazine [Silvadene] 1 % Cream 1 applic TOPICAL DAILY RF: 0 travoprost [Travatan Z] 0.004 % Drops 1 drp OPHTHALMIC (EYE) QPM RF: 0 guaifenesin [Poonam-Tussin] 100 mg/5 mL Liquid 10 ml PO Q6HR PRN (Reason: Cough) RF: 0 ascorbic acid (vitamin C) [Vitamin C] 500 mg Tablet 500 mg PO BID RF: 0 tamsulosin 0.4 mg Capsule,Extended Release 24hr 0.4 mg PO DAILY RF: 0 amlodipine [Norvasc] 10 mg Tablet 10 mg PO DAILY RF: 0 ibuprofen 400 mg Tablet 400 mg PO QID PRN (Reason: Pain) RF: 0 gabapentin 300 mg Capsule 300 mg PO DAILY RF: 0 zinc 50 mg Tablet 220 mg PO DAILY RF: 0 collagenase clostridium histo. [Santyl] 250 unit/gram Ointment 1 applic TOPICAL DAILY RF: 0 insulin lispro 100 unit/mL Solution 1 sliding scale dose SUB-Q UD RF: 0 levofloxacin [Levaquin] 500 mg Tablet 500 mg PO DAILY RF: 0 timolol maleate 0.5 % Drops 1 drp OPHTHALMIC (EYE) BID RF: 0 risperidone 0.5 mg Tablet 0.5 mg PO BID RF: 0 dorzolamide [Trusopt] 2 % Drops 1 drp OPHTHALMIC (EYE) TID RF: 0 metoprolol tartrate 25 mg Tablet 25 mg PO DAILY RF: 0 insulin detemir U-100 100 unit/mL Solution 20 unit SUB-Q DAILY RF: 0 acetaminophen [Tylenol] 325 mg Capsule 325 mg PO Q6H PRN (Reason: Pain) RF: 0 lactobacillus combination no.4 [Probiotic] 3 billion cell Capsule 1 tab PO DAILY RF: 0 Status ED Status: With Doctor
[2018-02-05 01:47] LABS: Baso % (Auto) 0.3 % (0.0-2.0); Eos % (Auto) 0.1 % (0.0-4.0); Hematocrit 29.1 % (39.0-51.0); Hemoglobin 9.5 gm/dL (13.0-17.0); Lymph # (Auto) 0.8 th/mm3 (1.0-4.8); Lymph % (Auto) 4.9 % (9.0-44.0); Mean Corpuscular HGB Conc 32.8 % (32.0-36.0); Mean Corpuscular Hemoglobin 29.7 pg (27.0-34.0); Mean Corpuscular Volume 90.7 fL (80.0-100.0); Mean Platelet Volume 9.1 fL (7.0-11.0); Mono # (Auto) 0.9 th/mm3 (0.0-0.9); Mono % (Auto) 5.7 % (0.0-8.0); Neut # (Auto) 13.8 th/mm3 (1.8-7.7); Platelet Count 214 th/mm3 (150-450); Red Blood Count 3.21 mil/mm3 (4.50-5.90); Red Cell Distribution Width 14.1 % (11.6-17.2); White Blood Count 15.6 th/mm3 (4.0-11.0)
--- NOTE | 2018-02-05 02:03 | XR ---
EXAM DATE: 02/05/2018 1:46 AM EDT AGE/SEX: 82 years / Male INDICATIONS: Shortness of breath. Fever. CLINICAL DATA: This is the patient's initial encounter. Patient reports that signs and symptoms have been present for 2 days and indicates a pain score of 2/10. MEDICAL/SURGICAL HISTORY: . Hypertension. Congestive heart failure. Diabetes mellitus type I. D ementia. . Pacemaker. CABG. COMPARISON: [facility] – [place]ST PA & LAT, 07/02/2017. . FINDINGS: Mild consolidation and small effusions seen of both lung bases. No pneumothorax seen. Heart size stable, upper limits of normal. Median sternotomy changes are again noted. There is a card iac pacer again seen. CONCLUSION: Mild consolidation and small effusions at each lung base probably related to mild failure. Electronically signed by: Kj Thompson MD 02/05/2018 2:02 AM EDT
[2018-02-05 02:13] LABS: Alkaline Phosphatase 147 U/L (45-117); Total Protein 8.6 g/dL (6.4-8.2)
[2018-02-05 02:17] LABS: Alanine Aminotransferase 28 U/L (12-78); Albumin 3.1 g/dL (3.4-5.0); Anion Gap 8 meq/L (5-15); Aspartate Aminotransferase 33 U/L (15-37); Blood Urea Nitrogen 50 mg/dL (7-18); Calcium 8.9 mg/dL (8.5-10.1); Carbon Dioxide 22.4 meq/L (21.0-32.0); Chloride 110 meq/L (98-107); Glomerular Filtration Rate 28 mL/min (>89); Glucose,Random 142 mg/dL (74-106); Sodium 140 meq/L (136-145)
[2018-02-05 02:18] LABS: Potassium 5.5 meq/L (3.5-5.1)
[2018-02-05] MEDS ORDERED: Heparin Drip 25,000 UNIT/250 ML BAG IV.CONT PRN (03:17)
[2018-02-05] MEDS ORDERED: Heparin 10,000 UNITS/10 ML Vial (for IV use) IV.PUSH STA (03:17)
[2018-02-05] MEDS ORDERED: Aspirin 300 MG Supp RECTAL ONE (03:20)
[2018-02-05 03:34] LABS: Activated Partial Thrombo Time 27.7 sec (24.3-30.1); INR 1.1 Ratio; Prothrombin Time 11.4 sec (9.8-11.6)
[2018-02-05] MEDS ORDERED: Acetaminophen 325 MG Tablet PO PRN (03:51)
[2018-02-05] MEDS ORDERED: Bisacodyl 10 MG Supp RECTAL PRN (03:51)
[2018-02-05] MEDS ORDERED: Dextrose 50% in Water 50 ML Vial IV.PUSH PRN (03:51)
[2018-02-05] MEDS ORDERED: Temazepam 15 MG Capsule PO PRN (03:51)
--- NOTE | 2018-02-05 04:22 | P.HPIM ---
History of Present Illness Primary Care Physician: Lilian Felix DO History of Present Illness: This is an 82-year-old male with a PMH of HTN, Hyperlipidemia, A. fib on Eliquis , Dementia, Glaucoma and DM who was sent to the ER from SNF due to hypoxia. Pt w/ recent outpatient CXR 02/04/18, found to have bibasilar infiltrates (report in chart) and started on Levaquin at SNF. Today, pt noted to have worsening SOB w/ O2 sat 70's upon EMS arrival. Daughter at bedside, states she works at SNF where pt resides, notes episodes of "aspiration" after eating. On arrival, O2 sat 94% on NRM w/ increased work of breathing, placed on BIPAP w/ O2 sat 100% . BRITNEY 180/75, HR 80, Temp 99.0. Creatinine 2.67, previously 2.60 on 02/04/18, 1.61 on 07/02/17. Trop 1.07. BNP 944. WBC 15.6. - Diagnosis (1) NSTEMI (non-ST elevated myocardial infarction) (2) Pulmonary edema (3) PNA (pneumonia) (4) DM (diabetes mellitus) Inpatient Certification: I certify that the inpatient services were ordered in accordance with Medicare regulations governing the order. This includes certification that hospital inpatient services are reasonable and necessary and in the case of services not specified as inpatient-only under 42 CFR 419.22(n), that they are appropriately provided as inpatient services in accordance to with the 2-midnight benchmark under 43 CFR 412.3(e) Estimated Total Length of Stay (Days): 2 Plans for Post Hospital Care: Not yet determined Review of Systems All other systems reviewed negative except as stated in HPI [facility] - History History Provided By: Medical Record - Medical History Medical History: Medical History (Last Reviewed 02/05/18 @ 01:37 by Estefany Cleary) A-fib Anemia BPH (benign prostatic hyperplasia) Constipation Dementia Diabetes mellitus Dysphagia [place] Glaucoma Gout Hyperlipidemia Hypertension Muscle weakness Pneumonia - Tobacco History Second Hand Smoke Exposure: No Smoking Status: Unknown if ever smoked - Alcohol History How Often Do You Have a Drink Containing Alcohol: Unable to Obtain - Substance Use History Substance History: Unable to Obtain - Immunization History Tetanus Immunization: Unable to Assess Hx Influenza Vaccine This Season: Unable to Assess Medications and Allergies Active Medications: Active Medications Acetaminophen (Tylenol) 650 mg PO Q4H PRN PRN Reason: Temp > 100.4 Al Hydroxide/Mg Hydroxide (Milk Of Magnesia Liq) 30 ml PO Q12H PRN PRN Reason: Mild Constipation Apixaban (Eliquis) 5 mg PO BID [facility] Aspirin (Ecotrin) 81 mg PO DAILY [facility] Bisacodyl (Dulcolax Supp) 10 mg RECTAL DAILY PRN PRN Reason: SEVERE CONSITIPATION Brimonidine Tartrate (Alphagan 0.2% Opth Drops) 1 drops EACH EYE TID [facility] Collagenase (Santyl Oint) 1 applicatio TOPICAL DAILY [facility] Dextrose (D50w Vial) 50 ml IV.PUSH UNSCH PRN PRN Reason: PER HYPOGLYCEMIA PROTOCOL Dorzolamide HCl (Trusopt 2% Opth Drops) 1 drop EACH EYE TID [facility] Escitalopram Oxalate (Lexapro) 10 mg PO DAILY [facility] Furosemide (Lasix Inj) 40 mg IV.PUSH BID@0900,1800 [facility] Gabapentin (Neurontin) 300 mg PO DAILY [facility] Glucagon (Glucagon Inj) 1 mg OTHER PRN PRN PRN Reason: for Hypoglycemia Protocol Insulin Aspart (Novolog Insulin Correctional Sugar Inj) 0 unit SQ ACHS YON; Protocol Lactulose (Lactulose Liq) 30 ml PO DAILY PRN PRN Reason: SEVERE CONSITIPATION Metoprolol Tartrate (Lopressor) 25 mg PO DAILY [facility] Non-Formulary Medication (Donepezil [Donepezil]) 10 mg PO DAILY [facility] Non-Formulary Medication (Multivitamin [Multivitamin]) 1 tab PO DAILY [facility] Non-Formulary Medication (Rosuvastatin) 10 mg PO DAILY [facility] Non-Formulary Medication (Travoprost [Travatan Z]) 1 drp EACH EYE QPM [facility] Ondansetron HCl (Zofran Inj) 4 mg IV.PUSH Q6H PRN PRN Reason: NAUSEA OR VOMITING Risperidone (Risperdal) 0.5 mg PO BID [facility] Senna/Docusate Sodium (Jeanette-Colace) 1 tab PO BID [facility] Sennosides (Senokot) 17.2 mg PO Q12H PRN PRN Reason: Moderate Constipation Silver Sulfadiazine (Silvadene 1% Cream (50 Gm)) 1 applicatio TOPICAL DAILY [facility] Tamsulosin HCl (Flomax) 0.4 mg PO DAILY [facility] Temazepam (Restoril) 15 mg PO HS PRN PRN Reason: INSOMNIA Timolol Maleate (Timoptic 0.5% Drops) 1 drops EACH EYE BID [facility] Allergies Allergy/AdvReac Type Severity Reaction Status Date / Time No Known Allergies Allergy Unverified 06/29/17 11:00 Home Medications Medication Instructions Recorded Confirmed Type acetaminophen [Tylenol] 325 mg PO Q6H PRN 02/05/18 02/05/18 History allopurinol 100 mg PO DAILY 02/05/18 02/05/18 History amlodipine [Norvasc] 10 mg PO DAILY 02/05/18 02/05/18 History apixaban 5 mg PO BID 02/05/18 02/05/18 History ascorbic acid (vitamin C) [Vitamin 500 mg PO BID 02/05/18 02/05/18 History C] aspirin [Aspir-81] 81 mg PO DAILY 02/05/18 02/05/18 History brimonidine 1 drp OPHTHALMIC (EYE) TID 02/05/18 02/05/18 History collagenase clostridium histo. 1 applic TOPICAL DAILY 02/05/18 02/05/18 History [Santyl] docusate sodium 100 mg PO DAILY 02/05/18 02/05/18 History donepezil 10 mg PO DAILY 02/05/18 02/05/18 History dorzolamide [Trusopt] 1 drp OPHTHALMIC (EYE) TID 02/05/18 02/05/18 History escitalopram oxalate 10 mg PO DAILY 02/05/18 02/05/18 History ferrous sulfate 325 mg PO BID 02/05/18 02/05/18 History fluticasone 1 spray INTRANASAL DAILY 02/05/18 02/05/18 History gabapentin 300 mg PO DAILY 02/05/18 02/05/18 History guaifenesin [Poonam-Tussin] 10 ml PO Q6HR PRN 02/05/18 02/05/18 History ibuprofen 400 mg PO QID PRN 02/05/18 02/05/18 History insulin detemir U-100 20 unit SUB-Q DAILY 02/05/18 02/05/18 History insulin lispro 1 sliding scale dose SUB-Q UD 02/05/18 02/05/18 History lactobacillus combination no.4 1 tab PO DAILY 02/05/18 02/05/18 History [Probiotic] levofloxacin [Levaquin] 500 mg PO DAILY 02/05/18 02/05/18 History metoprolol tartrate 25 mg PO DAILY 02/05/18 02/05/18 History multivitamin 1 tab PO DAILY 02/05/18 02/05/18 History risperidone 0.5 mg PO BID 02/05/18 02/05/18 History rosuvastatin [Crestor] 10 mg PO DAILY 02/05/18 02/05/18 History silver sulfadiazine [Silvadene] 1 applic TOPICAL DAILY 02/05/18 02/05/18 History tamsulosin 0.4 mg PO DAILY 02/05/18 02/05/18 History timolol maleate 1 drp OPHTHALMIC (EYE) BID 02/05/18 02/05/18 History travoprost [Travatan Z] 1 drp OPHTHALMIC (EYE) QPM 02/05/18 02/05/18 History zinc 220 mg PO DAILY 02/05/18 02/05/18 History Exam Vital signs: Vital Signs 02/05/18 01:07 02/05/18 01:15 02/05/18 01:40 Temperature 99.0 F Pulse Rate 83 80 Respiratory Rate 24 22 Blood Pressure 181/81 H 180/75 H Pulse Oximetry 96 94 L 92 L 02/05/18 02:07 02/05/18 03:15 Temperature Pulse Rate 77 Respiratory Rate 22 Blood Pressure 142/69 H Pulse Oximetry 97 100 Intake & Output 02/04/18 02/04/18 02/05/18 06:59 18:59 06:59 Weight 90.718 kg Narrative: PE: GENERAL: Elderly black male in no acute distress. On BIPAP. Daughter at bedside. HEENT: PERRLA, EOMI. No scleral icterus or conjunctival pallor. No lid lag or facial droop. CARDIOVASCULAR: Regular rate and rhythm. No obvious murmurs to auscultation. No chest tenderness to palpation. RESPIRATORY: No obvious rhonchi or wheezing. Clear to auscultation. Breath sounds equal bilaterally. GASTROINTESTINAL: Abdomen soft, non-tender, nondistended. BS normal. MUSCULOSKELETAL: Extremities without clubbing, cyanosis, or edema. No obvious deformities. NEUROLOGICAL: Awake, alert. No focal neurologic deficits. Moving both upper and lower extremities spontaneously. Results - Labs CBC & Chem 7: 02/05/18 01:30 02/05/18 01:30 Labs: Short CBC 02/05/18 Range/Units 01:30 WBC 15.6 H (4.0-11.0) th/mm3 Hgb 9.5 L (13.0-17.0) gm/dL Hct 29.1 L (39.0-51.0) % Plt Count 214 (150-450) th/mm3 BMP 02/05/18 01:30 Sodium 140 Potassium 5.5 H Chloride 110 H Carbon Dioxide 22.4 BUN 50 H Creatinine 2.67 H Calcium 8.9 Cardiac Enzymes 02/05/18 Range/Units 01:30 Troponin I 1.07 H* (0.02-0.05) ng/mL Liver Function 02/05/18 Range/Units 01:30 Total Bilirubin 0.3 (0.2-1.0) mg/dL AST 33 (15-37) U/L ALT 28 (12-78) U/L Alkaline Phosphatase 147 H (45-117) U/L Albumin 3.1 L (3.4-5.0) g/dL - Imaging Impressions Chest X-Ray 02/05/18 01:27 CONCLUSION: Mild consolidation and small effusions at each lung base probably related to mild failure. Caprini VTE Risk Assessment Caprini VTE Risk Assessment: Moderate/High Risk (score >= 2) Caprini Risk Assessment Model: Point Value = 1 Point Value = 2 Point Value = 3 Point Value = 5 Age 41-60 Minor surgery BMI > 25 kg/m2 Swollen legs Varicose veins or History of unexplained or recurrent spontaneous Oral contraceptives or hormone replacement Sepsis (< 1 month) Serious lung disease, including pneumonia (< 1 month) Abnormal pulmonary function Acute myocardial infarction Congestive heart failure (< 1 month) History of inflammatory bowel disease Medical patient at bed rest Age 61-74 Arthroscopic surgery Major open surgery (> 45 min) Laparoscopic surgery (> 45 min) Malignancy Confined to bed (> 72 hours) Immobilizing plaster cast Central venous access Age >= 75 History of VTE Family history of VTE Factor V Leiden Prothrombin [id number] Lupus anticoagulant Anticardiolipin antibodies Elevated serum homocysteine Heparin-induced thrombocytopenia Other congenital or acquired thrombophilia Stroke (< 1 month) Elective arthroplasty Hip, pelvis, or leg fracture Acute spinal cord injury (< 1 month) Prophylaxis Regimen: Total Risk Factor Score Risk Level Prophylaxis Regimen 0-1 Low Early ambulation 2 Moderate Order ONE of the following: *Sequential Compression Device (SCD) *Heparin 5000 units SQ BID 3-4 Higher Order ONE of the following medications: *Heparin 5000 units SQ TID *Enoxaparin/Lovenox 40 mg SQ daily (WT < 150 kg, CrCl > 30 mL/min) *Enoxaparin/Lovenox 30 mg SQ daily (WT < 150 kg, CrCl > 10-29 mL/min) *Enoxaparin/Lovenox 30 mg SQ BID (WT < 150 kg, CrCl > 30 mL/min) AND/OR *Sequential Compression Device (SCD) 5 or more Highest Order ONE of the following medications: *Heparin 5000 units SQ TID (Preferred with Epidurals) *Enoxaparin/Lovenox 40 mg SQ daily (WT < 150 kg, CrCl > 30 mL/min) *Enoxaparin/Lovenox 30 mg SQ daily (WT < 150 kg, CrCl > 10-29 mL/min) *Enoxaparin/Lovenox 30 mg SQ BID (WT < 150 kg, CrCl > 30 mL/min) AND *Sequential Compression Device (SCD) Assessment and Plan - Assessment (1) NSTEMI (non-ST elevated myocardial infarction) Code(s): I21.4 - Non-ST elevation (NSTEMI) myocardial infarction Status: Acute (2) Pulmonary edema Code(s): J81.1 - Chronic pulmonary edema Status: Acute (3) PNA (pneumonia) Code(s): J18.9 - Pneumonia, unspecified organism Status: Acute (4) DM (diabetes mellitus) Code(s): E11.9 - Type 2 diabetes mellitus without complications Status: Acute - Plan A/P: 1. NSTEMI: Trop 1.07, no acute EKG changes, no c/o chest pain, possibly due to pulmonary edema/renal dysfunction. Continue home Eliquis/ASA. Check serial trop for trend. Consult Cardiology for further recommendations. Telemetry. 2. Pulmonary Edema: CXR w/ pulmonary edema, images reviewed, BNP 944, s/p Lasix 40mg IV in ER. Check Echo to eval for cardiomyopathy, continue w/ diuresis-caution w/ renal function. Monitor I/O. Wean off BIPAP as tolerated, monitor O2. 3. PNA: outpatient CXR 02/04/18 w/ bibasilar infiltrates (report in chart), started on Levaquin at SNF, daughter reports possible aspiration. WBC 15. Will start IV Abx for likely PNA. NPO, Consult Speech for swallow eval. 4. DM: Sliding scale w/ Accu-Cheks. 5. DVT Prophylaxis: Eliquis 6. Social work for d/c planning as needed. 7. Case discussed w/ ER physician at length, labs/records/imaging reviewed by me. (2) Pulmonary edema Qualifiers: Chronicity: acute Qualified Code(s): J81.0 - Acute pulmonary edema
[2018-02-05] MEDS: Piperacil/Tazo 2.25 GM Premix 50 ML IV.SIG SCH ×3 (05:40→17:42)
[2018-02-05] MEDS: Senna/Docusate Sodium 8.6/50 MG Tablet PO SCH ×2 (08:24→21:58)
[2018-02-05] MEDS: Gabapentin 300 MG Capsule PO SCH (08:24)
[2018-02-05] MEDS: Metoprolol Tartrate 25 MG Tablet PO SCH (08:24)
[2018-02-05] MEDS: Escitalopram 10 MG Tablet PO SCH (08:25)
[2018-02-05] MEDS: Insulin NovoLOG Aspart Correctional Sugar Inj SQ SCH ×4 (08:29→21:59)
[2018-02-05] MEDS ORDERED: Heparin 10,000 UNITS/10 ML Vial (for IV use) IV.PUSH PRN (09:18)
[2018-02-05] MEDS: Dorzolamide 2% Opth Drops 10 ML Bottle EACH EYE SCH ×3 (09:37→20:00)
[2018-02-05] MEDS: Collagenase Oint 30 GM Tube TOPICAL SCH (09:37)
[2018-02-05] MEDS: Timolol 0.5% Drops 5 ML Bottle EACH EYE SCH ×2 (09:37→21:59)
[2018-02-05] MEDS: Brimonidine 0.2% Opth Drops 5 ML Bottle EACH EYE SCH ×3 (09:37→20:00)
--- NOTE | 2018-02-05 10:15 | ECG ---
Date Performed: 02/05/2018 Time Performed: 01:09:19 PTAGE: 82 years EKG: ELECTRONIC VENTRICULAR PACEMAKER ABNORMAL RHYTHM ECG PREVIOUS TRACING : 06/29/2017 10.46 Since the previous tracing, no significant change noted DOCTOR: Juliette Jimenez Interpretating Date/Time 02/05/2018 10:15:10
--- NOTE | 2018-02-05 11:27 | MB ---
cc: Kailash Prieto MD DATE: 02/05/2018 HISTORY OF PRESENT ILLNESS: Fredo is an 82-year-old gentleman who is currently receiving BiPAP and is a poor historian. When I asked him if he is having chest pain or shortness of breath, he denies it. Further review of systems is negative for any fever, chills, cough, GI or bleeding, PND, orthopnea, syncope or dizziness. According to the ER, the patient's chief complaint was dyspnea and shortness of breath. He lives in a prison. He has a history of dementia. He says he is breathing comfortably today. PAST MEDICAL HISTORY: Also includes atrial fibrillation, anemia, BPH, constipation, dementia, diabetes mellitus, dysphagia, falls, glaucoma, gout, hyperlipidemia, hypertension, muscle weakness, and pneumonia. SOCIAL HISTORY: Denies tobacco or alcohol use. ALLERGIES: NONE. MEDICATIONS: 1. Eliquis 5 mg b.i.d. 2. Aspirin 81 mg daily. 3. Lipitor 20 mg daily. 4. Aricept 10 mg daily. 5. Lasix 40 mg IV b.i.d. 6. Gabapentin 300 daily. 7. Insulin. 8. Lopressor 25 p.o. daily. 9. Multivitamins. 10. Piperacillin/tazobactam. 11. Risperdal. PHYSICAL EXAMINATION: VITAL SIGNS: Blood pressure 166/78, pulse 66, respiratory rate 19, temperature 98.4. GENERAL: He is alert, oriented x 1, in no acute distress. NECK: Supple. No JVD. No bruit. CARDIOVASCULAR: S1, S2. No murmurs, rubs or gallops. LUNGS: He does have decreased air movement in the bases bilaterally in his lung salazar. ABDOMEN: Soft, nontender, nondistended with positive bowel sounds. EXTREMITIES: No lower extremity edema. DIAGNOSTIC STUDIES: His EKG shows a paced ventricular rhythm, indeterminate underlying atrial rhythm. LABORATORY DATA: White count 15.6, hemoglobin 9.5, hematocrit 29.1, platelet count 214. INR 1.1. Sodium 140, potassium 5.5, chloride 110, bicarbonate 22.4, BUN 50, creatinine 2.67. Troponin is 1.07. BNP is 944. DIAGNOSES: 1. [id number] myocardial infarction. 2. Anemia. 3. Elevated white count. 4. Hyperkalemia. 5. Chronic renal insufficiency. 6. Acute renal failure. 7. Diabetes mellitus. 8. Respiratory failure. 9. Dementia. 10. Atrial fibrillation. DISCUSSION: At this point in time, the patient is completely asymptomatic. Suspect his troponin elevation is secondary to hypoxia; however, he certainly has multiple risk factors for significant obstructive ischemic heart disease. As he has dementia and is not consentable, we will continue medical therapy for now. We will continue the Eliquis for his atrial fibrillation, aspirin for his non-STEMI, Lopressor and Lipitor. MD DINESH Ritter/CONNOR , 11:04 AM , 11:26 AM
[2018-02-05 12:38] LABS: Hematocrit 25.7 % (39.0-51.0); Hemoglobin 8.5 gm/dL (13.0-17.0); Mean Corpuscular HGB Conc 33.2 % (32.0-36.0); Mean Corpuscular Volume 90.4 fL (80.0-100.0); Mean Platelet Volume 9.1 fL (7.0-11.0); Platelet Count 185 th/mm3 (150-450); Red Blood Count 2.85 mil/mm3 (4.50-5.90); Red Cell Distribution Width 14.5 % (11.6-17.2); White Blood Count 11.1 th/mm3 (4.0-11.0)
[2018-02-05] MEDS ORDERED: LORazepam 0.5 MG Tablet PO PRN (16:33)
--- NOTE | 2018-02-05 19:09 | ECHRPT ---
Indication: cardiomyopathy CONCLUSIONS The left ventricular systolic function is mildly reduced with an estimated ejection fraction in the range of 45- 50%. Mild concentric left ventricular hypertrophy. [id number] mitral valve regurgitation. Trace aortic valve regurgitation. There is trace tricuspid valve regurgitation. There is estimated moderate pulmonary hypertension present (53 mmHg). A moderate left sided pleural effusion is noted. BP: / HR: Rhythm: MEASUREMENTS (Male / Female) Normal Values Technical Quality: 2D ECHO LV Diastolic Diameter PLAX 4.5 cm 4.2 - 5.9 / 3.9 - 5.3 cm LV Systolic Diameter PLAX 4.1 cm IVS Diastolic Thickness 1.4 cm 0.6 - 1.0 / 0.6 - 0.9 cm LVPW Diastolic Thickness 0.8 cm 0.6 - 1.0 / 0.6 - 0.9 cm LV Relative Wall Thickness 0.5 RV Internal Dim ED PLAX 2.2 cm LVOT Diameter 2.0 cm LA Systolic Diameter LX 3.5 cm 3.0 - 4.0 / 2.7 - 3.8 cm M-MODE AV Cusp Separation MM 1.5 cm DOPPLER Mitral E Point Velocity 109.0 cm/s Mitral A Point Velocity 81.7 cm/s Mitral E to A Ratio 1.3 TR Peak Velocity 327.0 cm/s TR Peak Gradient 42.8 mmHg Right Atrial Pressure 10.0 mmHg Pulmonary Artery Systolic Pressu 52.8 mmHg Right Ventricular Systolic Press 52.8 mmHg FINDINGS LEFT VENTRICLE Normal left ventricular size. Mild concentric left ventricular hypertrophy. The left ventricular systolic function is mildly reduced with an estimated ejection fraction in the range of 45- 50%. RIGHT VENTRICLE Normal right ventricular size and systolic function. LEFT ATRIUM The left atrial size is mildly dilated. RIGHT ATRIUM The right atrial size is normal. ATRIAL SEPTUM Normal atrial septal thickness AORTA The aortic root and proximal ascending aorta are normal in size on limited imaging. MITRAL VALVE Mitral annular calcification is present. [id number] mitral valve regurgitation. AORTIC VALVE Aortic valve sclerosis is present. Moderate thickening of the aortic valve leaflets. Trace aortic valve regurgitation. TRICUSPID VALVE There is estimated moderate pulmonary hypertension present (53 mmHg). There is trace tricuspid valve regurgitation. PULMONARY VALVE Trivial pulmonary valve regurgitation. VESSELS The inferior vena cava is normal in size. PERICARDIUM There is a trival pericardial effusion present. A moderate left sided pleural effusion is noted. Pio Cordero DO (Electronically Signed) Final Date:05 February 2018 19:08
[2018-02-05] MEDS: Latanoprost 0.005% Opth Drops 2.5 ML Bottle EACH EYE SCH (20:00)
[2018-02-06] MEDS: Piperacil/Tazo 2.25 GM Premix 50 ML IV.SIG SCH ×5 (00:16→22:43)
[2018-02-06 05:04] LABS: Baso % (Auto) 0.3 % (0.0-2.0); Eos % (Auto) 0.5 % (0.0-4.0); Hematocrit 23.5 % (39.0-51.0); Lymph # (Auto) 0.9 th/mm3 (1.0-4.8); Lymph % (Auto) 8.5 % (9.0-44.0); Mean Corpuscular Hemoglobin 30.4 pg (27.0-34.0); Mean Corpuscular Volume 89.5 fL (80.0-100.0); Mean Platelet Volume 9.1 fL (7.0-11.0); Mono # (Auto) 1.1 th/mm3 (0.0-0.9); Mono % (Auto) 10.1 % (0.0-8.0); Neut # (Auto) 8.4 th/mm3 (1.8-7.7); Neut % (Auto) 80.6 % (16.0-70.0); Platelet Count 166 th/mm3 (150-450); Red Blood Count 2.63 mil/mm3 (4.50-5.90); Red Cell Distribution Width 14.4 % (11.6-17.2); White Blood Count 10.4 th/mm3 (4.0-11.0)
[2018-02-06 05:36] LABS: Alanine Aminotransferase 24 U/L (12-78); Albumin 2.5 g/dL (3.4-5.0); Alkaline Phosphatase 114 U/L (45-117); Anion Gap 12 meq/L (5-15); Aspartate Aminotransferase 45 U/L (15-37); Blood Urea Nitrogen 58 mg/dL (7-18); Calcium 8.5 mg/dL (8.5-10.1); Carbon Dioxide 22.6 meq/L (21.0-32.0); Chloride 109 meq/L (98-107); Glomerular Filtration Rate 25 mL/min (>89); Glucose,Random 138 mg/dL (74-106); Potassium 4.2 meq/L (3.5-5.1); Sodium 144 meq/L (136-145); Total Protein 7.1 g/dL (6.4-8.2)
[2018-02-06] MEDS: Insulin NovoLOG Aspart Correctional Sugar Inj SQ SCH ×4 (08:10→21:12)
[2018-02-06] MEDS: Gabapentin 300 MG Capsule PO SCH (08:40)
[2018-02-06] MEDS: Escitalopram 10 MG Tablet PO SCH (08:40)
[2018-02-06] MEDS: Timolol 0.5% Drops 5 ML Bottle EACH EYE SCH ×2 (08:40→21:11)
[2018-02-06] MEDS: Senna/Docusate Sodium 8.6/50 MG Tablet PO SCH ×2 (08:41→21:09)
[2018-02-06] MEDS: Metoprolol Tartrate 25 MG Tablet PO SCH (08:41)
[2018-02-06] MEDS: Dorzolamide 2% Opth Drops 10 ML Bottle EACH EYE SCH ×3 (08:43→17:41)
[2018-02-06] MEDS: Brimonidine 0.2% Opth Drops 5 ML Bottle EACH EYE SCH ×3 (08:43→17:41)
[2018-02-06] MEDS: Collagenase Oint 30 GM Tube TOPICAL SCH (08:43)
--- NOTE | 2018-02-06 10:34 | P.PN ---
Physical Exam Vital signs: Vital Signs 02/05/18 12:00 02/05/18 12:25 02/05/18 13:38 Temperature Pulse Rate 77 Respiratory Rate 18 Blood Pressure 142/73 H Pulse Oximetry 97 98 94 L 02/05/18 16:30 02/05/18 20:00 02/05/18 22:17 Temperature 99 F 98.6 F Pulse Rate 70 87 90 Respiratory Rate 18 20 18 Blood Pressure 158/73 H 154/79 H Pulse Oximetry 92 L 92 L 92 L 02/06/18 00:00 02/06/18 00:06 02/06/18 01:00 Temperature Pulse Rate 84 79 78 Respiratory Rate 20 Blood Pressure 154/75 H Pulse Oximetry 97 02/06/18 02:00 02/06/18 03:00 02/06/18 03:42 Temperature Pulse Rate 76 74 72 Respiratory Rate 18 Blood Pressure 134/63 Pulse Oximetry 100 02/06/18 04:00 02/06/18 05:00 02/06/18 06:00 Temperature Pulse Rate 70 74 66 Respiratory Rate Blood Pressure Pulse Oximetry 02/06/18 07:00 Temperature Pulse Rate 71 Respiratory Rate Blood Pressure Pulse Oximetry 99 Intake & Output 02/05/18 02/06/18 02/06/18 18:59 06:59 18:59 Intake Total 100 / 100 340 / 340 Balance 100 / 100 340 / 340 Weight 90.6 kg Intake: IV 100 / 100 100 / 100 Zosyn 2.25 GM Premix 50 ML @ 100 / 100 100 / 100 100 mls/hr IV.SIG Q6H [facility] Rx#: [id number] Oral 240 / 240 Other: # Incontinent Voids 1 2 # Urine Diapers 1 2 Date of Last Bowel Movement 02/05/18 02/05/18 # Bowel Movements 1 0 # Incontinent Bowel Movements 1 Narrative: Subjective: The patient is in bed he appears in distress due to shortness of breath he is currently on BiPAP. He does not have any chest pain at this time. No nausea vomiting no diarrhea or constipation. Physical exam: GENERAL: Elderly AA male in no acute distress. On BIPAP. HEENT: PERRLA, EOMI. No scleral icterus or conjunctival pallor. No lid lag or facial droop. CARDIOVASCULAR: Regular rate and rhythm. No obvious murmurs to auscultation. No chest tenderness to palpation. RESPIRATORY: No obvious rhonchi or wheezing. Clear to auscultation. Breath sounds equal bilaterally. GASTROINTESTINAL: Abdomen soft, non-tender, nondistended. BS normal. MUSCULOSKELETAL: Extremities without clubbing, cyanosis, or edema. No obvious deformities. NEUROLOGICAL: Awake, alert. No focal neurologic deficits. Moving both upper and lower extremities spontaneously. Assessment and Plan 1. NSTEMI: Trop elevated, no acute EKG changes, no c/o chest pain, possibly due to pulmonary edema/renal dysfunction. Continue home Eliquis/ASA. Consult Cardiology appreciate recommendations. Continue meds. Telemetry. 2. Pulmonary Edema: CXR w/ pulmonary edema, images reviewed, BNP 944, s/p Lasix 40mg IV in ER. Check Echo to eval for cardiomyopathy, continue w/ diuresis-caution w/ renal function. Monitor I/O. Wean off BIPAP as tolerated, monitor O2. 3. PNA: outpatient CXR 02/04/18 w/ bibasilar infiltrates (report in chart), started on Levaquin at SNF, daughter reports possible aspiration. WBC 15. Will start IV Abx for likely PNA. NPO, Consult Speech for swallow eval. 4. DM: Sliding scale w/ Accu-Cheks. DVT Prophylaxis: Zulema DAILEY consulted for d/c planning as needed. Case discussed with the patient, nurse Dr Prieto cardiology Results - Labs CBC & Chem 7: 02/06/18 04:16 02/06/18 04:16 Laboratory Results - last 24 hr 02/05/18 02/05/18 02/05/18 11:33 11:52 11:52 WBC 11.1 H RBC 2.85 L Hgb 8.5 L Hct 25.7 L MCV 90.4 MCH 30.0 MCHC 33.2 RDW 14.5 Plt Count 185 MPV 9.1 Neut % (Auto) Lymph % (Auto) Cross % (Auto) Eos % (Auto) Baso % (Auto) Neut # (Auto) Lymph # (Auto) Cross # (Auto) Eos # (Auto) Baso # (Auto) WBC Differential Differential Comment APTT 28.7 Sodium Potassium Chloride Carbon Dioxide Anion Gap BUN Creatinine Estimated GFR POC Glucose 153 H Random Glucose Calcium Total Bilirubin AST ALT Alkaline Phosphatase Troponin I Total Protein Albumin 02/05/18 02/05/18 02/05/18 11:52 18:20 20:55 WBC RBC Hgb Hct MCV MCH MCHC RDW Plt Count MPV Neut % (Auto) Lymph % (Auto) Cross % (Auto) Eos % (Auto) Baso % (Auto) Neut # (Auto) Lymph # (Auto) Cross # (Auto) Eos # (Auto) Baso # (Auto) WBC Differential Differential Comment APTT Sodium Potassium Chloride Carbon Dioxide Anion Gap BUN Creatinine Estimated GFR POC Glucose 253 H Random Glucose Calcium Total Bilirubin AST ALT Alkaline Phosphatase Troponin I 1.18 H* 1.29 H* Total Protein Albumin 02/06/18 02/06/18 04:16 04:16 WBC 10.4 RBC 2.63 L Hgb 8.0 L Hct 23.5 L MCV 89.5 MCH 30.4 MCHC 34.0 RDW 14.4 Plt Count 166 MPV 9.1 Neut % (Auto) 80.6 H Lymph % (Auto) 8.5 L Cross % (Auto) 10.1 H Eos % (Auto) 0.5 Baso % (Auto) 0.3 Neut # (Auto) 8.4 H Lymph # (Auto) 0.9 L Cross # (Auto) 1.1 H Eos # (Auto) 0.0 Baso # (Auto) 0.0 WBC Differential . Differential Comment Auto diff final APTT Sodium 144 Potassium 4.2 D Chloride 109 H Carbon Dioxide 22.6 Anion Gap 12 BUN 58 H Creatinine 2.92 H Estimated GFR 25 L POC Glucose Random Glucose 138 H Calcium 8.5 Total Bilirubin 0.4 AST 45 H ALT 24 Alkaline Phosphatase 114 Troponin I Total Protein 7.1 D Albumin 2.5 L D Microbiology 02/05/18 12:15 Stool Stool Occult Blood (JOHN) - Final Hemoccult negative Assessment and Plan - Assessment (1) NSTEMI (non-ST elevated myocardial infarction) Code(s): I21.4 - Non-ST elevation (NSTEMI) myocardial infarction Status: Acute (2) Pulmonary edema Code(s): J81.1 - Chronic pulmonary edema Status: Acute (3) PNA (pneumonia) Code(s): J18.9 - Pneumonia, unspecified organism Status: Acute (4) DM (diabetes mellitus) Code(s): E11.9 - Type 2 diabetes mellitus without complications Status: Acute (2) Pulmonary edema Qualifiers: Chronicity: acute Qualified Code(s): J81.0 - Acute pulmonary edema
--- NOTE | 2018-02-06 12:51 | P.PNCA ---
Subjective Interval history: on bipap in nad Physical Exam Vital signs: Vital Signs 02/05/18 13:38 02/05/18 16:30 02/05/18 20:00 Temperature 99 F 98.6 F Pulse Rate 70 87 Respiratory Rate 18 20 Blood Pressure 158/73 H 154/79 H Pulse Oximetry 94 L 92 L 92 L 02/05/18 22:17 02/06/18 00:00 02/06/18 00:06 Temperature Pulse Rate 90 84 79 Respiratory Rate 18 20 Blood Pressure 154/75 H Pulse Oximetry 92 L 97 02/06/18 01:00 02/06/18 02:00 02/06/18 03:00 Temperature Pulse Rate 78 76 74 Respiratory Rate Blood Pressure Pulse Oximetry 02/06/18 03:42 02/06/18 04:00 02/06/18 05:00 Temperature Pulse Rate 72 70 74 Respiratory Rate 18 Blood Pressure 134/63 Pulse Oximetry 100 02/06/18 06:00 02/06/18 07:00 02/06/18 08:00 Temperature 98.3 F Pulse Rate 66 71 70 Respiratory Rate 18 Blood Pressure 163/81 H Pulse Oximetry 99 99 02/06/18 09:00 02/06/18 10:00 02/06/18 11:00 Temperature 98.7 F Pulse Rate 71 73 69 Respiratory Rate 16 Blood Pressure 166/81 H Pulse Oximetry 100 02/06/18 12:00 Temperature Pulse Rate 69 Respiratory Rate Blood Pressure Pulse Oximetry Intake & Output 02/05/18 02/06/18 02/06/18 18:59 06:59 18:59 Intake Total 100 / 100 340 / 340 50 / 50 Balance 100 / 100 340 / 340 50 / 50 Weight 90.6 kg Intake: IV 100 / 100 100 / 100 50 / 50 Zosyn 2.25 GM Premix 50 ML @ 100 / 100 100 / 100 50 / 50 100 mls/hr IV.SIG Q6H [facility] Rx#: [id number] Oral 240 / 240 Other: # Incontinent Voids 1 2 # Urine Diapers 1 2 Date of Last Bowel Movement 02/05/18 02/05/18 # Bowel Movements 1 0 # Incontinent Bowel Movements 1 Assessment and Plan - Assessment (1) Dementia Code(s): F03.90 - Unspecified dementia without behavioral disturbance Status: Acute (2) ARF (acute renal failure) Code(s): N17.9 - Acute kidney failure, unspecified Status: Acute (3) Acute dyspnea Code(s): R06.00 - Dyspnea, unspecified Status: Acute (4) ACS (acute coronary syndrome) Code(s): I24.9 - Acute ischemic heart disease, unspecified Status: Acute (5) NSTEMI (non-ST elevated myocardial infarction) Code(s): I21.4 - Non-ST elevation (NSTEMI) myocardial infarction Status: Acute (6) PNA (pneumonia) Code(s): J18.9 - Pneumonia, unspecified organism Status: Acute (7) DM (diabetes mellitus) Code(s): E11.9 - Type 2 diabetes mellitus without complications Status: Acute - Plan 1.) NSTEMI - assymptomatic, on eliquis, continue aspirin, lipitor, lopressor, antione held due to arf; rec medical man due to arf, dementia
[2018-02-06] MEDS: Latanoprost 0.005% Opth Drops 2.5 ML Bottle EACH EYE SCH (17:41)
[2018-02-07] MEDS: Piperacil/Tazo 2.25 GM Premix 50 ML IV.SIG SCH ×4 (05:26→23:50)
[2018-02-07 06:01] LABS: Hematocrit 25.1 % (39.0-51.0); Hemoglobin 8.4 gm/dL (13.0-17.0); Mean Corpuscular HGB Conc 33.5 % (32.0-36.0); Mean Corpuscular Hemoglobin 30.4 pg (27.0-34.0); Mean Corpuscular Volume 90.8 fL (80.0-100.0); Mean Platelet Volume 9.3 fL (7.0-11.0); Platelet Count 175 th/mm3 (150-450); Red Blood Count 2.77 mil/mm3 (4.50-5.90); Red Cell Distribution Width 14.3 % (11.6-17.2); White Blood Count 7.9 th/mm3 (4.0-11.0)
[2018-02-07] MEDS: Dorzolamide 2% Opth Drops 10 ML Bottle EACH EYE SCH ×3 (08:52→17:04)
[2018-02-07] MEDS: Gabapentin 300 MG Capsule PO SCH (08:52)
[2018-02-07] MEDS: Escitalopram 10 MG Tablet PO SCH (08:52)
[2018-02-07] MEDS: Metoprolol Tartrate 25 MG Tablet PO SCH (08:52)
[2018-02-07] MEDS: Timolol 0.5% Drops 5 ML Bottle EACH EYE SCH ×2 (08:52→21:38)
[2018-02-07] MEDS: Senna/Docusate Sodium 8.6/50 MG Tablet PO SCH ×2 (08:53→21:39)
[2018-02-07] MEDS: Brimonidine 0.2% Opth Drops 5 ML Bottle EACH EYE SCH ×3 (08:53→17:05)
[2018-02-07] MEDS: Insulin NovoLOG Aspart Correctional Sugar Inj SQ SCH ×4 (08:53→21:38)
[2018-02-07] MEDS: Collagenase Oint 30 GM Tube TOPICAL SCH (08:54)
--- NOTE | 2018-02-07 10:15 | P.PNCA ---
Subjective Interval history: alert in nad, assymptomatic on nc Physical Exam Vital signs: Vital Signs 02/06/18 11:00 02/06/18 12:00 02/06/18 13:00 Temperature 98.7 F Pulse Rate 69 69 72 Respiratory Rate 16 Blood Pressure 166/81 H Pulse Oximetry 100 02/06/18 14:00 02/06/18 15:00 02/06/18 16:00 Temperature 98.9 F Pulse Rate 68 78 70 Respiratory Rate 16 Blood Pressure 171/80 H Pulse Oximetry 100 02/06/18 17:00 02/06/18 18:00 02/06/18 19:00 Temperature 97.9 F Pulse Rate 76 80 84 Respiratory Rate 16 Blood Pressure 165/76 H Pulse Oximetry 98 02/06/18 20:00 02/06/18 21:00 02/06/18 22:00 Temperature Pulse Rate 86 74 82 Respiratory Rate Blood Pressure Pulse Oximetry 02/06/18 23:00 02/06/18 23:51 02/07/18 00:00 Temperature Pulse Rate 83 78 Respiratory Rate 20 Blood Pressure 151/79 H Pulse Oximetry 96 96 02/07/18 01:00 02/07/18 02:00 02/07/18 03:00 Temperature Pulse Rate 68 69 76 Respiratory Rate 16 Blood Pressure 156/76 H Pulse Oximetry 100 02/07/18 04:00 02/07/18 05:00 02/07/18 06:00 Temperature Pulse Rate 80 76 72 Respiratory Rate Blood Pressure Pulse Oximetry 02/07/18 07:00 02/07/18 08:00 02/07/18 09:00 Temperature 97.9 F Pulse Rate 65 65 70 Respiratory Rate 16 Blood Pressure 152/76 H Pulse Oximetry 100 Intake & Output 02/06/18 02/07/18 02/07/18 18:59 06:59 18:59 Intake Total 340 / 340 290 / 290 Output Total 200 / 200 Balance 340 / 340 90 / 90 Weight 92.4 kg Intake: IV 100 / 100 50 / 50 Zosyn 2.25 GM Premix 50 ML @ 100 / 100 50 / 50 100 mls/hr IV.SIG Q6H [facility] Rx#: [id number] Oral 240 / 240 240 / 240 Output: Urine 200 / 200 Other: # Incontinent Voids 3 2 Date of Last Bowel Movement 02/07/18 # Incontinent Bowel Movements 1 1 Assessment and Plan - Assessment (1) Dementia Code(s): F03.90 - Unspecified dementia without behavioral disturbance Status: Acute (2) ARF (acute renal failure) Code(s): N17.9 - Acute kidney failure, unspecified Status: Acute (3) Acute dyspnea Code(s): R06.00 - Dyspnea, unspecified Status: Acute (4) ACS (acute coronary syndrome) Code(s): I24.9 - Acute ischemic heart disease, unspecified Status: Acute (5) NSTEMI (non-ST elevated myocardial infarction) Code(s): I21.4 - Non-ST elevation (NSTEMI) myocardial infarction Status: Acute (6) PNA (pneumonia) Code(s): J18.9 - Pneumonia, unspecified organism Status: Acute (7) DM (diabetes mellitus) Code(s): E11.9 - Type 2 diabetes mellitus without complications Status: Acute - Plan 1.) NSTEMI - assymptomatic, on eliquis, continue aspirin, lipitor, lopressor, antione held due to arf; rec medical man due to arf, dementia
--- NOTE | 2018-02-07 15:23 | P.PN ---
Physical Exam Vital signs: Vital Signs 02/06/18 16:00 02/06/18 17:00 02/06/18 18:00 Temperature Pulse Rate 70 76 80 Respiratory Rate Blood Pressure Pulse Oximetry 02/06/18 19:00 02/06/18 20:00 02/06/18 21:00 Temperature 97.9 F Pulse Rate 84 86 74 Respiratory Rate 16 Blood Pressure 165/76 H Pulse Oximetry 98 02/06/18 22:00 02/06/18 23:00 02/06/18 23:51 Temperature Pulse Rate 82 83 Respiratory Rate 20 Blood Pressure 151/79 H Pulse Oximetry 96 96 02/07/18 00:00 02/07/18 01:00 02/07/18 02:00 Temperature Pulse Rate 78 68 69 Respiratory Rate Blood Pressure Pulse Oximetry 02/07/18 03:00 02/07/18 04:00 02/07/18 05:00 Temperature Pulse Rate 76 80 76 Respiratory Rate 16 Blood Pressure 156/76 H Pulse Oximetry 100 02/07/18 06:00 02/07/18 07:00 02/07/18 08:00 Temperature 97.9 F Pulse Rate 72 65 65 Respiratory Rate 16 Blood Pressure 152/76 H Pulse Oximetry 100 02/07/18 09:00 02/07/18 10:00 02/07/18 11:00 Temperature 98.0 F Pulse Rate 70 71 77 Respiratory Rate 16 Blood Pressure 157/78 H Pulse Oximetry 100 02/07/18 12:00 02/07/18 13:00 02/07/18 14:00 Temperature Pulse Rate 68 69 65 Respiratory Rate Blood Pressure Pulse Oximetry 02/07/18 15:00 Temperature 97.8 F Pulse Rate 79 Respiratory Rate 16 Blood Pressure 146/80 H Pulse Oximetry 100 Intake & Output 02/06/18 02/07/18 02/07/18 18:59 06:59 18:59 Intake Total 340 / 340 340 / 340 50 / 50 Output Total 200 / 200 Balance 340 / 340 140 / 140 50 / 50 Weight 92.4 kg Intake: IV 100 / 100 100 / 100 50 / 50 Zosyn 2.25 GM Premix 50 ML @ 100 / 100 100 / 100 50 / 50 100 mls/hr IV.SIG Q6H [facility] Rx#: [id number] Oral 240 / 240 240 / 240 Output: Urine 200 / 200 Other: # Incontinent Voids 3 2 Date of Last Bowel Movement 02/07/18 # Incontinent Bowel Movements 1 1 Narrative: Subjective: The patient is in bed he appears improved today he is less shortness of breath and he is saturating well on nasal cannula at this time. Denies having any chest pain. Some shortness of breath however says he is improving. Appetite is fairly well. No nausea vomiting able to eat. No constipation or diarrhea. Physical exam: GENERAL: Elderly AA male in no acute distress. CARDIOVASCULAR: Regular rate and rhythm. No MRG. RESPIRATORY: Decreased breath sounds bilaterally. No wheezing. GASTROINTESTINAL: Abdomen soft, non-tender, nondistended. BS normal. MUSCULOSKELETAL: Extremities without clubbing, cyanosis, or edema. No obvious deformities. NEUROLOGICAL: Awake, alert. No focal neurologic deficits. Moving both upper and lower extremities spontaneously. Assessment and Plan 1. NSTEMI: Asymptomatic. Trop elevated, on admission no acute EKG changes, no c/o chest pain, possibly due to pulmonary edema/renal dysfunction. Continue home Eliquis/ASA. Consult Cardiology appreciate recommendations. Continue Eliquis, aspirin, lipitor, lopressor, antione held due to DOMINGO; dr Prieto cardiology recommends medical management due to DOMINGO, dementia On Telemetry. 2. Pulmonary Edema: CXR w/ pulmonary edema, images reviewed, BNP 944 n admission, s/p Lasix 40mg IV in ER. Check Echo to eval for cardiomyopathy, continue w/ diuresis-caution w/ renal function. Monitor I/O. Weaned off BIPAP, monitor O2. O2 supplement keep O2 sat> 92 % 3. PNA: outpatient CXR 02/04/18 w/ bibasilar infiltrates (report in chart), started on Levaquin at [facility], daughter reports possible aspiration. WBC 15. Will start IV Abx for likely PNA. NPO, Consult Speech for swallow eval and advance diet per ST recommendations. 4. DM: Sliding scale w/ Accu-Cheks. DVT Prophylaxis: Zulema DAILEY consulted for d/c planning as needed. Case discussed with the patient, nurse, Dr Prieto cardiology Improving off bipap. Transfer [facility] of [facility]. Transfer to [facility]. Results - Labs CBC & Chem 7: 02/07/18 05:03 02/06/18 04:16 Laboratory Results - last 24 hr 02/06/18 02/07/18 02/07/18 20:46 05:03 11:10 WBC 7.9 RBC 2.77 L Hgb 8.4 L Hct 25.1 L MCV 90.8 MCH 30.4 MCHC 33.5 RDW 14.3 Plt Count 175 MPV 9.3 POC Glucose 223 H 217 H Microbiology 02/05/18 01:35 Blood - Peripheral Aerobic Blood Culture - Preliminary No growth in 2 days 02/05/18 01:35 Blood - Peripheral Anaerobic Blood Culture - Preliminary No growth in 2 days 02/05/18 01:30 Blood - Peripheral Aerobic Blood Culture - Preliminary No growth in 2 days 02/05/18 01:30 Blood - Peripheral Anaerobic Blood Culture - Preliminary No growth in 2 days Assessment and Plan - Assessment (1) NSTEMI (non-ST elevated myocardial infarction) Code(s): I21.4 - Non-ST elevation (NSTEMI) myocardial infarction Status: Acute (2) Pulmonary edema Code(s): J81.1 - Chronic pulmonary edema Status: Acute (3) PNA (pneumonia) Code(s): J18.9 - Pneumonia, unspecified organism Status: Acute (4) DM (diabetes mellitus) Code(s): E11.9 - Type 2 diabetes mellitus without complications Status: Acute (2) Pulmonary edema Qualifiers: Chronicity: acute Qualified Code(s): J81.0 - Acute pulmonary edema
[2018-02-07] MEDS: Latanoprost 0.005% Opth Drops 2.5 ML Bottle EACH EYE SCH (17:04)
[2018-02-08] MEDS: Piperacil/Tazo 2.25 GM Premix 50 ML IV.SIG SCH ×3 (04:25→17:19)
[2018-02-08] MEDS: Collagenase Oint 30 GM Tube TOPICAL SCH ×2 (06:24→10:02)
[2018-02-08 07:06] LABS: Baso % (Auto) 0.4 % (0.0-2.0); Eos # (Auto) 0.4 th/mm3 (0.0-0.4); Eos % (Auto) 3.9 % (0.0-4.0); Hematocrit 27.5 % (39.0-51.0); Hemoglobin 9.5 gm/dL (13.0-17.0); Mean Corpuscular HGB Conc 34.6 % (32.0-36.0); Mean Corpuscular Hemoglobin 31.2 pg (27.0-34.0); Mean Corpuscular Volume 90.1 fL (80.0-100.0); Mean Platelet Volume 9.3 fL (7.0-11.0); Mono # (Auto) 0.9 th/mm3 (0.0-0.9); Mono % (Auto) 8.7 % (0.0-8.0); Neut # (Auto) 7.8 th/mm3 (1.8-7.7); Platelet Count 215 th/mm3 (150-450); Red Blood Count 3.06 mil/mm3 (4.50-5.90); White Blood Count 10.2 th/mm3 (4.0-11.0)
[2018-02-08 07:11] LABS: Calcium 8.8 mg/dL (8.5-10.1); Carbon Dioxide 25.6 meq/L (21.0-32.0); Potassium 3.7 meq/L (3.5-5.1)
[2018-02-08] MEDS ORDERED: LORazepam 1 MG Tablet PO PRN (09:00)
[2018-02-08] MEDS: Timolol 0.5% Drops 5 ML Bottle EACH EYE SCH ×2 (09:16→21:46)
[2018-02-08] MEDS: Gabapentin 300 MG Capsule PO SCH (09:17)
[2018-02-08] MEDS: Metoprolol Tartrate 25 MG Tablet PO SCH (09:17)
[2018-02-08] MEDS: Escitalopram 10 MG Tablet PO SCH (09:17)
[2018-02-08] MEDS: Insulin NovoLOG Aspart Correctional Sugar Inj SQ SCH ×4 (09:18→21:45)
[2018-02-08] MEDS ORDERED: LORazepam 1 MG Tablet PO SCH (09:30)
--- NOTE | 2018-02-08 09:40 | P.PN ---
Physical Exam Vital signs: Vital Signs 02/07/18 10:00 02/07/18 11:00 02/07/18 12:00 Temperature 98.0 F Pulse Rate 71 77 68 Respiratory Rate 16 Blood Pressure 157/78 H Pulse Oximetry 100 02/07/18 13:00 02/07/18 14:00 02/07/18 15:00 Temperature 97.8 F Pulse Rate 69 65 79 Respiratory Rate 16 Blood Pressure 146/80 H Pulse Oximetry 100 02/07/18 16:00 02/07/18 17:00 02/07/18 18:00 Temperature Pulse Rate 68 70 68 Respiratory Rate Blood Pressure Pulse Oximetry 02/07/18 19:00 02/07/18 20:00 02/07/18 21:00 Temperature 98.9 F Pulse Rate 70 72 78 Respiratory Rate 20 Blood Pressure 153/72 H Pulse Oximetry 100 02/07/18 22:00 02/07/18 23:00 02/08/18 00:00 Temperature Pulse Rate 74 79 72 Respiratory Rate 20 Blood Pressure 166/74 H Pulse Oximetry 94 L 02/08/18 01:00 02/08/18 02:00 02/08/18 03:00 Temperature Pulse Rate 78 74 72 Respiratory Rate 16 Blood Pressure 154/88 H Pulse Oximetry 94 L 02/08/18 04:00 02/08/18 05:00 02/08/18 06:00 Temperature Pulse Rate 72 84 66 Respiratory Rate Blood Pressure Pulse Oximetry 02/08/18 07:00 Temperature Pulse Rate 68 Respiratory Rate Blood Pressure Pulse Oximetry Intake & Output 02/07/18 02/08/18 02/08/18 18:59 06:59 18:59 Intake Total 1150 / 1150 290 / 290 50 / 50 Output Total 2900 / 2900 800 / 800 Balance -1750 / -1750 -510 / -510 50 / 50 Weight 89.6 kg Intake: IV 100 / 100 50 / 50 50 / 50 Zosyn 2.25 GM Premix 50 ML @ 100 / 100 50 / 50 50 / 50 100 mls/hr IV.SIG Q6H [facility] Rx#: [id number] Oral 1050 / 1050 240 / 240 Output: Urine 2900 / 2900 800 / 800 Other: # Incontinent Voids 2 Date of Last Bowel Movement 02/07/18 02/07/18 # Bowel Movements 1 1 Narrative: Subjective: F/u NSTEMI, Pulm edema, PNA The patient is in bed he appears improved today. No n/v/d/c. Sattign well. Some sob. No chest pain. No focal deficit. Plan for ct Physical exam: GENERAL: Elderly AA male in no acute distress. CARDIOVASCULAR: Regular rate and rhythm. No MRG. RESPIRATORY: Decreased breath sounds bilaterally. No wheezing. GASTROINTESTINAL: Abdomen soft, non-tender, nondistended. BS normal. MUSCULOSKELETAL: Extremities without clubbing, cyanosis, or edema. No obvious deformities. NEUROLOGICAL: Awake, alert. No focal neurologic deficits. Moving both upper and lower extremities spontaneously. Assessment and Plan 1. NSTEMI: Asymptomatic. Trop elevated, on admission no acute EKG changes, no c/o chest pain, possibly due to pulmonary edema/renal dysfunction. Continue home Eliquis/ASA. Consult Cardiology appreciate recommendations. Continue Eliquis, aspirin, lipitor, lopressor, antione held due to DOMINGO; dr Prieto cardiology recommends medical management due to DOMINGO, dementia On Telemetry. 2. Pulmonary Edema: CXR w/ pulmonary edema, images reviewed, BNP 944 n admission, s/p Lasix 40mg IV in ER. Check Echo to eval for cardiomyopathy, continue w/ diuresis-caution w/ renal function. Monitor I/O. Weaned off BIPAP, monitor O2. O2 supplement keep O2 sat> 92 % 3. PNA: outpatient CXR 02/04/18 w/ bibasilar infiltrates (report in chart), started on Levaquin at SNF, daughter reports possible aspiration. WBC 15. Will start IV Abx for likely PNA. NPO, Consult Speech for swallow eval and advance diet per ST recommendations. 4. DM: Sliding scale w/ Accu-Cheks. DVT Prophylaxis: Zulema DAILEY consulted for d/c planning as needed. Case discussed with the patient, nurse, Dr Prieto cardiology Improving off bipap. Transfer out of [facility]. Transfer to [facility]. Results - Labs CBC & Chem 7: 02/08/18 05:33 02/08/18 05:33 Laboratory Results - last 24 hr 02/07/18 02/07/18 02/08/18 11:10 21:21 05:33 WBC 10.2 RBC 3.06 L Hgb 9.5 L Hct 27.5 L MCV 90.1 MCH 31.2 MCHC 34.6 RDW 14.0 Plt Count 215 MPV 9.3 Neut % (Auto) 77.0 H Lymph % (Auto) 10.0 [place] % (Auto) 8.7 H Eos % (Auto) 3.9 Baso % (Auto) 0.4 Neut # (Auto) 7.8 H Lymph # (Auto) 1.0 [place] # (Auto) 0.9 Eos # (Auto) 0.4 Baso # (Auto) 0.0 WBC Differential . Differential Comment Auto diff final Sodium Potassium Chloride Carbon Dioxide Anion Gap BUN Creatinine Estimated GFR POC Glucose 217 H 279 H Random Glucose Calcium 02/08/18 02/08/18 05:33 08:53 WBC RBC Hgb Hct MCV MCH MCHC RDW Plt Count MPV Neut % (Auto) Lymph % (Auto) [place] % (Auto) Eos % (Auto) Baso % (Auto) Neut # (Auto) Lymph # (Auto) [place] # (Auto) Eos # (Auto) Baso # (Auto) WBC Differential Differential Comment Sodium 143 Potassium 3.7 Chloride 108 H Carbon Dioxide 25.6 Anion Gap 9 BUN 51 H Creatinine 2.61 H Estimated GFR 29 L POC Glucose 187 H Random Glucose 170 H Calcium 8.8 Microbiology 02/05/18 01:35 Blood - Peripheral Aerobic Blood Culture - Preliminary No growth in 2 days 02/05/18 01:35 Blood - Peripheral Anaerobic Blood Culture - Preliminary No growth in 2 days 02/05/18 01:30 Blood - Peripheral Aerobic Blood Culture - Preliminary No growth in 2 days 02/05/18 01:30 Blood - Peripheral Anaerobic Blood Culture - Preliminary No growth in 2 days Assessment and Plan - Assessment (1) NSTEMI (non-ST elevated myocardial infarction) Code(s): I21.4 - Non-ST elevation (NSTEMI) myocardial infarction Status: Acute (2) Pulmonary edema Code(s): J81.1 - Chronic pulmonary edema Status: Acute (3) PNA (pneumonia) Code(s): J18.9 - Pneumonia, unspecified organism Status: Acute (4) DM (diabetes mellitus) Code(s): E11.9 - Type 2 diabetes mellitus without complications Status: Acute (2) Pulmonary edema Qualifiers: Chronicity: acute Qualified Code(s): J81.0 - Acute pulmonary edema
[2018-02-08] MEDS: Brimonidine 0.2% Opth Drops 5 ML Bottle EACH EYE SCH ×3 (10:02→18:00)
[2018-02-08] MEDS: Dorzolamide 2% Opth Drops 10 ML Bottle EACH EYE SCH ×3 (10:02→19:54)
[2018-02-08] MEDS: Senna/Docusate Sodium 8.6/50 MG Tablet PO SCH ×2 (10:03→21:40)
--- NOTE | 2018-02-08 12:20 | CT ---
EXAM DATE: 02/08/2018 12:13 PM EDT AGE/SEX: 82 years / Male INDICATIONS: ALTERED MENTAL STATUS CLINICAL DATA: This is the patient's initial encounter. Patient reports that signs and symptoms have been present for 1 day and indicates a pain score of 0/10. MEDICAL/SURGICAL HISTORY: Hypertension. Diabetes. Cardiovascular disease. None. RADIATION DOSE: 56.35 CTDI (mGy) COMPARISON: No prior exams available for comparison. TECHNIQUE: CT of the head without contrast. Using automated exposure control and adjustment of the mA and/or kV according to patient size, radiation dose was kept as low as reasonably achievable to ob tain optimal diagnostic quality images. DICOM format image data is available electronically for revi ew and comparison. FINDINGS: Cerebrum: Moderate central and cortical atrophy No evidence of midline shift, mass lesion, hemorrhag e or acute infarction. No extraaxial fluid collections are seen. Periventricular ischemic changes an d lacunar infarct basal ganglia right side and adjacent to third ventricle on the left. Posterior Fossa: The cerebellum and brainstem are intact. The 4th ventricle is midline. The cerebe llopontine angle is unremarkable. Extracranial: The visualized portion of the orbits is intact. Skull: The calvaria is intact. No evidence of skull fracture. CONCLUSION: 1. Atrophy otherwise negative for acute process . Electronically signed by: Maurilio Linton MD 02/08/2018 12:18 PM EDT
--- NOTE | 2018-02-08 13:27 | P.PNCA ---
Subjective Interval history: alert in nad Physical Exam Vital signs: Vital Signs 02/07/18 14:00 02/07/18 15:00 02/07/18 16:00 Temperature 97.8 F Pulse Rate 65 79 68 Respiratory Rate 16 Blood Pressure 146/80 H Pulse Oximetry 100 02/07/18 17:00 02/07/18 18:00 02/07/18 19:00 Temperature 98.9 F Pulse Rate 70 68 70 Respiratory Rate 20 Blood Pressure 153/72 H Pulse Oximetry 100 02/07/18 20:00 02/07/18 21:00 02/07/18 22:00 Temperature Pulse Rate 72 78 74 Respiratory Rate Blood Pressure Pulse Oximetry 02/07/18 23:00 02/08/18 00:00 02/08/18 01:00 Temperature Pulse Rate 79 72 78 Respiratory Rate 20 Blood Pressure 166/74 H Pulse Oximetry 94 L 02/08/18 02:00 02/08/18 03:00 02/08/18 04:00 Temperature Pulse Rate 74 72 72 Respiratory Rate 16 Blood Pressure 154/88 H Pulse Oximetry 94 L 02/08/18 05:00 02/08/18 06:00 02/08/18 07:00 Temperature 98.6 F Pulse Rate 84 66 67 Respiratory Rate 24 Blood Pressure 184/85 H Pulse Oximetry 02/08/18 09:00 02/08/18 10:00 02/08/18 11:00 Temperature 97.9 F Pulse Rate 70 72 67 Respiratory Rate 20 Blood Pressure 163/82 H Pulse Oximetry 94 L Intake & Output 02/07/18 02/08/18 02/08/18 18:59 06:59 18:59 Intake Total 1150 / 1150 290 / 290 100 / 100 Output Total 2900 / 2900 800 / 800 Balance -1750 / -1750 -510 / -510 100 / 100 Weight 89.6 kg Intake: IV 100 / 100 50 / 50 100 / 100 Zosyn 2.25 GM Premix 50 ML @ 100 / 100 50 / 50 100 / 100 100 mls/hr IV.SIG Q6H [facility] Rx#: [id number] Oral 1050 / 1050 240 / 240 Output: Urine 2900 / 2900 800 / 800 Other: # Incontinent Voids 2 Date of Last Bowel Movement 02/07/18 02/07/18 02/08/18 # Bowel Movements 1 1 Assessment and Plan - Assessment (1) Dementia Code(s): F03.90 - Unspecified dementia without behavioral disturbance Status: Acute (2) ARF (acute renal failure) Code(s): N17.9 - Acute kidney failure, unspecified Status: Acute (3) Acute dyspnea Code(s): R06.00 - Dyspnea, unspecified Status: Acute (4) ACS (acute coronary syndrome) Code(s): I24.9 - Acute ischemic heart disease, unspecified Status: Acute (5) NSTEMI (non-ST elevated myocardial infarction) Code(s): I21.4 - Non-ST elevation (NSTEMI) myocardial infarction Status: Acute (6) PNA (pneumonia) Code(s): J18.9 - Pneumonia, unspecified organism Status: Acute (7) DM (diabetes mellitus) Code(s): E11.9 - Type 2 diabetes mellitus without complications Status: Acute - Plan 1.) NSTEMI - assymptomatic, on eliquis, continue aspirin, lipitor, lopressor, antione held due to arf; rec medical man due to arf, dementia
[2018-02-08] MEDS: Latanoprost 0.005% Opth Drops 2.5 ML Bottle EACH EYE SCH (18:00)
[2018-02-09] MEDS: Piperacil/Tazo 2.25 GM Premix 50 ML IV.SIG SCH ×5 (00:26→23:15)
[2018-02-09] MEDS: Insulin NovoLOG Aspart Correctional Sugar Inj SQ SCH ×4 (08:00→23:27)
[2018-02-09] MEDS: Brimonidine 0.2% Opth Drops 5 ML Bottle EACH EYE SCH ×3 (10:02→17:14)
[2018-02-09] MEDS: Senna/Docusate Sodium 8.6/50 MG Tablet PO SCH ×2 (10:03→21:26)
[2018-02-09] MEDS: Escitalopram 10 MG Tablet PO SCH (10:03)
[2018-02-09] MEDS: Gabapentin 300 MG Capsule PO SCH (10:03)
[2018-02-09] MEDS: Metoprolol Tartrate 25 MG Tablet PO SCH (10:03)
[2018-02-09] MEDS: Collagenase Oint 30 GM Tube TOPICAL SCH (10:04)
[2018-02-09] MEDS: Dorzolamide 2% Opth Drops 10 ML Bottle EACH EYE SCH ×3 (10:07→17:15)
[2018-02-09] MEDS: Timolol 0.5% Drops 5 ML Bottle EACH EYE SCH ×2 (10:07→21:27)
--- NOTE | 2018-02-09 12:18 | P.PNIM ---
Subjective Interval history: 02-09 PATIENT REMAINS NON-VERBAL AT THIS TIME DW RN AND CM AM LABS WILL NEED TO GO BACK TO SNF PT AND OT PASSED SWALLOW EVAL Physical Exam Vital signs: Vital Signs 02/08/18 14:00 02/08/18 15:00 02/08/18 20:00 Temperature 97.6 F 98.5 F Pulse Rate 66 69 75 Respiratory Rate 20 20 Blood Pressure 178/82 H 199/89 H Pulse Oximetry 99 93 L 02/08/18 23:00 02/09/18 00:00 02/09/18 04:00 Temperature 98.7 F 98.3 F Pulse Rate 81 76 77 Respiratory Rate 20 20 Blood Pressure 175/84 H 138/78 Pulse Oximetry 94 L 97 02/09/18 08:00 Temperature 98.0 F Pulse Rate 73 Respiratory Rate 18 Blood Pressure 162/76 H Pulse Oximetry 97 Intake & Output 02/08/18 02/09/18 02/09/18 18:59 06:59 18:59 Intake Total 1150 / 1150 100 / 100 Output Total 800 / 800 Balance 350 / 350 100 / 100 Weight 88.7 kg Intake: IV 150 / 150 100 / 100 Zosyn 2.25 GM Premix 50 ML @ 150 / 150 100 / 100 100 mls/hr IV.SIG Q6H [facility] Rx#: [id number] Oral 1000 / 1000 0 / 0 Output: Urine 800 / 800 Other: # Voids 3 Date of Last Bowel Movement 02/08/18 02/08/18 # Bowel Movements 1 Narrative: GENERAL: IN NAD, ELDERLY MALE SKIN: Warm and dry. HEAD: Normocephalic. EYES: No scleral icterus. No injection or drainage. NECK: Supple, trachea midline. No JVD or lymphadenopathy. CARDIOVASCULAR: Regular rate and rhythm without murmurs, gallops, or rubs. S1, S2 NO S3 OR S4 RESPIRATORY: Breath sounds equal bilaterally. No accessory muscle use. GASTROINTESTINAL: Abdomen soft, non-tender, nondistended. MUSCULOSKELETAL: No cyanosis, or edema. BACK: Nontender without obvious deformity. No CVA tenderness. NONVERBAL AT THIS TIME FOLLOWS NO COMMANDS Results - Labs CBC & Chem 7: 02/08/18 05:33 02/08/18 05:33 Laboratory Results - last 24 hr 02/08/18 02/08/18 02/09/18 16:38 20:05 08:22 POC Glucose 275 H 292 H 121 H Microbiology 02/05/18 01:35 Blood - Peripheral Aerobic Blood Culture - Preliminary No growth in 4 days 02/05/18 01:35 Blood - Peripheral Anaerobic Blood Culture - Preliminary No growth in 4 days 02/05/18 01:30 Blood - Peripheral Aerobic Blood Culture - Preliminary No growth in 4 days 02/05/18 01:30 Blood - Peripheral Anaerobic Blood Culture - Preliminary No growth in 4 days - Imaging Impressions Head CT 02/08/18 00:00 CONCLUSION: 1. Atrophy otherwise negative for acute process . - Procedures NONE Assessment and Plan - Assessment (1) NSTEMI (non-ST elevated myocardial infarction) Code(s): I21.4 - Non-ST elevation (NSTEMI) myocardial infarction Status: Acute (2) Pulmonary edema Code(s): J81.1 - Chronic pulmonary edema Status: Acute (3) PNA (pneumonia) Code(s): J18.9 - Pneumonia, unspecified organism Status: Acute (4) DM (diabetes mellitus) Code(s): E11.9 - Type 2 diabetes mellitus without complications Status: Acute - Plan 1. NSTEMI: Asymptomatic. Trop elevated, on admission no acute EKG changes, no c/o chest pain, possibly due to pulmonary edema/renal dysfunction. Continue home Eliquis/ASA. Consult Cardiology appreciate recommendations. Continue Eliquis, aspirin, lipitor, lopressor, antione held due to DOMINGO; dr Prieto cardiology recommends medical management due to DOMINGO, dementia On Telemetry. 2. Pulmonary Edema: CXR w/ pulmonary edema, images reviewed, BNP 944 n admission, s/p Lasix 40mg IV in ER. Check Echo to eval for cardiomyopathy, continue w/ diuresis-caution w/ renal function. Monitor I/O. Weaned off BIPAP, monitor O2. O2 supplement keep O2 sat> 92 % 3. PNA: outpatient CXR 02/04/18 w/ bibasilar infiltrates (report in chart), started on Levaquin at SNF, daughter reports possible aspiration. WBC 15. Will start IV Abx for likely PNA. Consult Speech for swallow eval and advance diet per ST recommendations. PASSED SWALLOW EVAL 4. DM: Sliding scale w/ Accu-Cheks. DVT Prophylaxis: Zulema DAILEY consulted for d/c planning as needed. Case discussed with the patient, nurse, Dr Prieto cardiology Improving off bipap. Transfer out of [facility]. Transfer to [facility]. Code Status: FULL CODE Discussed Condition With: RN AND CM PT IS NONVERBAL AT THIS TIME Discharge Planning: WILL GO BACK TO [facility] (2) Pulmonary edema Qualifiers: Chronicity: acute Qualified Code(s): J81.0 - Acute pulmonary edema
--- NOTE | 2018-02-09 14:38 | P.PNCA ---
Subjective Interval history: asleep in nad Physical Exam Vital signs: Vital Signs 02/08/18 15:00 02/08/18 20:00 02/08/18 23:00 Temperature 97.6 F 98.5 F 98.7 F Pulse Rate 69 75 81 Respiratory Rate 20 20 20 Blood Pressure 178/82 H 199/89 H 175/84 H Pulse Oximetry 99 93 L 94 L 02/09/18 00:00 02/09/18 04:00 02/09/18 07:00 Temperature 98.3 F Pulse Rate 76 77 85 Respiratory Rate 20 Blood Pressure 138/78 Pulse Oximetry 97 02/09/18 08:00 02/09/18 12:24 Temperature 98.0 F Pulse Rate 85 70 Respiratory Rate 18 22 Blood Pressure 162/76 H Pulse Oximetry 97 Intake & Output 02/08/18 02/09/18 02/09/18 18:59 06:59 18:59 Intake Total 1150 / 1150 100 / 100 Output Total 800 / 800 Balance 350 / 350 100 / 100 Weight 88.7 kg Intake: IV 150 / 150 100 / 100 Zosyn 2.25 GM Premix 50 ML @ 150 / 150 100 / 100 100 mls/hr IV.SIG Q6H YON Rx#: [id number] Oral 1000 / 1000 0 / 0 Output: Urine 800 / 800 Other: # Voids 3 Date of Last Bowel Movement 02/08/18 02/08/18 02/08/18 # Bowel Movements 1 Assessment and Plan - Assessment (1) Dementia Code(s): F03.90 - Unspecified dementia without behavioral disturbance Status: Acute (2) ARF (acute renal failure) Code(s): N17.9 - Acute kidney failure, unspecified Status: Acute (3) Acute dyspnea Code(s): R06.00 - Dyspnea, unspecified Status: Acute (4) ACS (acute coronary syndrome) Code(s): I24.9 - Acute ischemic heart disease, unspecified Status: Acute (5) NSTEMI (non-ST elevated myocardial infarction) Code(s): I21.4 - Non-ST elevation (NSTEMI) myocardial infarction Status: Acute (6) PNA (pneumonia) Code(s): J18.9 - Pneumonia, unspecified organism Status: Acute (7) DM (diabetes mellitus) Code(s): E11.9 - Type 2 diabetes mellitus without complications Status: Acute - Plan 1.) NSTEMI - assymptomatic, on eliquis, continue aspirin, lipitor, lopressor, antione held due to arf; rec medical man due to arf, dementia
[2018-02-09] MEDS: Latanoprost 0.005% Opth Drops 2.5 ML Bottle EACH EYE SCH (17:15)
[2018-02-10] MEDS: Piperacil/Tazo 2.25 GM Premix 50 ML IV.SIG SCH ×4 (05:05→22:43)
[2018-02-10] MEDS: Brimonidine 0.2% Opth Drops 5 ML Bottle EACH EYE SCH ×3 (08:56→19:13)
[2018-02-10] MEDS: Insulin NovoLOG Aspart Correctional Sugar Inj SQ SCH ×4 (09:09→22:42)
[2018-02-10] MEDS: Escitalopram 10 MG Tablet PO SCH (09:09)
[2018-02-10] MEDS: Metoprolol Tartrate 25 MG Tablet PO SCH (09:10)
[2018-02-10] MEDS: Senna/Docusate Sodium 8.6/50 MG Tablet PO SCH ×2 (09:10→20:31)
[2018-02-10] MEDS: Dorzolamide 2% Opth Drops 10 ML Bottle EACH EYE SCH ×3 (09:10→17:43)
[2018-02-10] MEDS: Gabapentin 300 MG Capsule PO SCH (09:10)
[2018-02-10] MEDS: Timolol 0.5% Drops 5 ML Bottle EACH EYE SCH ×2 (09:10→20:31)
[2018-02-10] MEDS: Collagenase Oint 30 GM Tube TOPICAL SCH (09:10)
--- NOTE | 2018-02-10 09:21 | P.PNIM ---
Subjective Interval history: Extremely sleepy. Only opens eyes briefly to physical stimuli. Physical Exam Vital signs: Vital Signs 02/09/18 12:00 02/09/18 12:24 02/09/18 16:00 Temperature 97.9 F 97.6 F Pulse Rate 73 70 68 Respiratory Rate 18 22 18 Blood Pressure 143/75 H 160/69 H Pulse Oximetry 97 97 02/09/18 19:49 02/09/18 20:00 02/10/18 00:00 Temperature 98.9 F 98.0 F Pulse Rate 70 69 73 Respiratory Rate 20 20 Blood Pressure 180/84 H 152/66 H Pulse Oximetry 98 98 02/10/18 04:00 02/10/18 05:00 02/10/18 08:00 Temperature 98.3 F 97.1 F L Pulse Rate 70 73 72 Respiratory Rate 20 22 Blood Pressure 133/72 159/72 H Pulse Oximetry 99 98 Intake & Output 02/09/18 02/10/18 02/10/18 18:59 06:59 18:59 Intake Total 580 / 580 850 / 850 Output Total 200 / 200 Balance 580 / 580 650 / 650 Weight 89.2 kg Intake: IV 100 / 100 100 / 100 Zosyn 2.25 GM Premix 50 ML @ 100 / 100 100 / 100 100 mls/hr IV.SIG Q6H YON Rx#: [id number] Oral 480 / 480 750 / 750 Output: Urine 200 / 200 Other: # Incontinent Voids 2 Date of Last Bowel Movement 02/08/18 # Bowel Movements 2 # Incontinent Bowel Movements 2 Narrative: GENERAL: This is a well-nourished, well-developed patient, extremely sleepy, CARDIOVASCULAR: Regular rate and rhythm without murmurs, gallops, or rubs. RESPIRATORY: Few bibasilar crackles GASTROINTESTINAL: Abdomen soft, non-tender, nondistended. Normal active bowel sounds MUSCULOSKELETAL: Extremities without clubbing, cyanosis, or edema. NEURO: Extremely sleepy and only briefly opens eyes with physical stimuli Results - Labs CBC & Chem 7: 02/08/18 05:33 02/08/18 05:33 Laboratory Results - last 24 hr 02/09/18 02/09/18 02/09/18 12:27 17:09 23:22 POC Glucose 191 H 249 H 312 H 02/10/18 08:29 POC Glucose 204 H Microbiology 02/05/18 01:35 Blood - Peripheral Aerobic Blood Culture - Preliminary No growth in 4 days 02/05/18 01:35 Blood - Peripheral Anaerobic Blood Culture - Preliminary No growth in 4 days 02/05/18 01:30 Blood - Peripheral Aerobic Blood Culture - Preliminary No growth in 4 days 02/05/18 01:30 Blood - Peripheral Anaerobic Blood Culture - Preliminary No growth in 4 days - Procedures NONE Assessment and Plan - Assessment (1) NSTEMI (non-ST elevated myocardial infarction) Code(s): I21.4 - Non-ST elevation (NSTEMI) myocardial infarction Status: Acute (2) Pulmonary edema Code(s): J81.1 - Chronic pulmonary edema Status: Acute (3) PNA (pneumonia) Code(s): J18.9 - Pneumonia, unspecified organism Status: Acute (4) DM (diabetes mellitus) Code(s): E11.9 - Type 2 diabetes mellitus without complications Status: Acute - Plan 1. NSTEMI: Asymptomatic. Trop elevated, on admission no acute EKG changes, no c/o chest pain, possibly due to pulmonary edema/renal dysfunction with chronic kidney disease stage IV. Continue home Eliquis/ASA. Consult Cardiology , Dr. Prieto appreciate recommendations. Continue Eliquis, aspirin, lipitor, lopressor, antione held due to DOMINGO; cardiology recommends medical management due to DOMINGO superimposed on chronic kidney disease stage IV, dementia On Telemetry monitoring. 2. Pulmonary Edema: CXR w/ pulmonary edema, images reviewed, BNP 944 n admission, s/p Lasix 40mg IV in ER. Echo to eval for cardiomyopathy, continue w/ diuresis-caution w/ renal function. Results pending Monitor I/O. Weaned off BIPAP, monitor O2. O2 supplement keep O2 sat> 92 %, currently on 3 L 4. Suspect hypoxia encephalopathypatient extremely sleepy sedated this morning , will obtain ABG to rule out hypercapnia. Need to determine if patient needs to restart back on BiPAP. Hold Risperdal and Restoril. Avoid sedating medication. 5. Aspiration PNA: outpatient CXR 02/04/18 w/ bibasilar infiltrates (report in chart), started on Levaquin at [facility], daughter reports possible aspiration. WBC 15 on presentation. Will start IV Abx for likely PNA. Consult Speech for swallow eval and advance diet per ST recommendations. Currently passed swallow evaluation and is on regular diet with thin liquids. 6. DM type II: Sliding scale w/ Accu-Cheks. Labile blood sugars will continue to monitor. 7. Acute kidney injury superimposed on chronic kidney disease stage IV continue monitor closely on diuretics and avoid nephrotoxins. 8. Dementia, chronic, resume home medication Aricept 9. DVT Prophylaxis: Eliquis (2) Pulmonary edema Qualifiers: Chronicity: acute Qualified Code(s): J81.0 - Acute pulmonary edema (3) PNA (pneumonia) Qualifiers: Pneumonia type: aspiration pneumonia Aspiration pneumonia type: unspecified Laterality: bilateral Lung location: unspecified part of lung Qualified Code(s ): J69.0 - Pneumonitis due to inhalation of food and vomit (4) DM (diabetes mellitus) Qualifiers: Diabetes mellitus type: type 2 Diabetes mellitus care home insulin use: without terminal press operator use Diabetes mellitus complication status: with kidney complications Diabetes mellitus complication detail: with chronic kidney disease Chronic kidney disease stage: stage 4 (severe) Qualified Code(s): E11.22 - Type 2 diabetes mellitus with diabetic chronic kidney disease; N18.4 - Chronic kidney disease, stage 4 (severe)
[2018-02-10 10:11] LABS: Baso # (Auto) 0.1 th/mm3 (0.0-0.2); Baso % (Auto) 0.8 % (0.0-2.0); Eos # (Auto) 0.6 th/mm3 (0.0-0.4); Eos % (Auto) 7.9 % (0.0-4.0); Hematocrit 23.9 % (39.0-51.0); Hemoglobin 8.3 gm/dL (13.0-17.0); Lymph % (Auto) 14.7 % (9.0-44.0); Mean Corpuscular HGB Conc 34.8 % (32.0-36.0); Mean Corpuscular Hemoglobin 31.4 pg (27.0-34.0); Mean Corpuscular Volume 90.3 fL (80.0-100.0); Mean Platelet Volume 8.6 fL (7.0-11.0); Mono # (Auto) 0.8 th/mm3 (0.0-0.9); Mono % (Auto) 11.4 % (0.0-8.0); Neut # (Auto) 4.6 th/mm3 (1.8-7.7); Neut % (Auto) 65.2 % (16.0-70.0); Platelet Count 208 th/mm3 (150-450); Red Blood Count 2.65 mil/mm3 (4.50-5.90)
[2018-02-10 11:04] LABS: Chol/HDL Ratio 2.5 Ratio; Free T4 (Free Thyroxine) 0.96 ng/dL (0.76-1.46); HDL Cholesterol 34.3 mg/dL (40.0-60.0)
[2018-02-10 11:10] LABS: Potassium 3.5 meq/L (3.5-5.1); Sodium 141 meq/L (136-145)
[2018-02-10 11:11] LABS: Alanine Aminotransferase 21 U/L (12-78); Albumin 2.3 g/dL (3.4-5.0); Anion Gap 8 meq/L (5-15); Aspartate Aminotransferase 24 U/L (15-37); Blood Urea Nitrogen 45 mg/dL (7-18); Carbon Dioxide 28.1 meq/L (21.0-32.0); Chloride 105 meq/L (98-107); Glomerular Filtration Rate 29 mL/min (>89); Glucose,Random 160 mg/dL (74-106); Magnesium 1.8 mg/dL (1.5-2.5); Phosphorus 4.1 mg/dL (2.5-4.9)
[2018-02-10 11:12] LABS: Alkaline Phosphatase 97 U/L (45-117)
[2018-02-10 11:17] LABS: ABG Base Excess 3.9 mmol/L (-2-2); ABG PCO2 45 mmHg (38-42); ABG PO2 106 mmHg (61-120)
--- NOTE | 2018-02-10 15:53 | P.PNCA ---
Subjective Interval history: asleep in nad Physical Exam Vital signs: Vital Signs 02/09/18 16:00 02/09/18 19:49 02/09/18 20:00 Temperature 97.6 F 98.9 F Pulse Rate 68 70 69 Respiratory Rate 18 20 Blood Pressure 160/69 H 180/84 H Pulse Oximetry 97 98 02/10/18 00:00 02/10/18 04:00 02/10/18 05:00 Temperature 98.0 F 98.3 F Pulse Rate 73 70 73 Respiratory Rate 20 20 Blood Pressure 152/66 H 133/72 Pulse Oximetry 98 99 02/10/18 08:00 02/10/18 12:00 02/10/18 13:42 Temperature 97.1 F L 97.2 F L Pulse Rate 72 68 80 Respiratory Rate 22 22 Blood Pressure 159/72 H 155/71 H Pulse Oximetry 98 98 Intake & Output 02/09/18 02/10/18 02/10/18 18:59 06:59 18:59 Intake Total 580 / 580 850 / 850 Output Total 200 / 200 Balance 580 / 580 650 / 650 Weight 89.2 kg Intake: IV 100 / 100 100 / 100 Zosyn 2.25 GM Premix 50 ML @ 100 / 100 100 / 100 100 mls/hr IV.SIG Q6H YON Rx#: [id number] Oral 480 / 480 750 / 750 Output: Urine 200 / 200 Other: # Incontinent Voids 2 Date of Last Bowel Movement 02/08/18 02/08/18 # Bowel Movements 2 # Incontinent Bowel Movements 2 Assessment and Plan - Assessment (1) Dementia Code(s): F03.90 - Unspecified dementia without behavioral disturbance Status: Acute (2) ARF (acute renal failure) Code(s): N17.9 - Acute kidney failure, unspecified Status: Acute (3) Acute dyspnea Code(s): R06.00 - Dyspnea, unspecified Status: Acute (4) ACS (acute coronary syndrome) Code(s): I24.9 - Acute ischemic heart disease, unspecified Status: Acute (5) NSTEMI (non-ST elevated myocardial infarction) Code(s): I21.4 - Non-ST elevation (NSTEMI) myocardial infarction Status: Acute (6) PNA (pneumonia) Code(s): J18.9 - Pneumonia, unspecified organism Status: Acute (7) DM (diabetes mellitus) Code(s): E11.9 - Type 2 diabetes mellitus without complications Status: Acute - Plan 1.) NSTEMI - assymptomatic, on eliquis, continue aspirin, lipitor, lopressor, antione held due to arf; rec medical man due to arf, dementia (6) PNA (pneumonia) Qualifiers: Pneumonia type: aspiration pneumonia Aspiration pneumonia type: unspecified Laterality: bilateral Lung location: unspecified part of lung Qualified Code(s ): J69.0 - Pneumonitis due to inhalation of food and vomit (7) DM (diabetes mellitus) Qualifiers: Diabetes mellitus type: type 2 Diabetes mellitus mcfp insulin use: without mcfp use Diabetes mellitus complication status: with kidney complications Diabetes mellitus complication detail: with chronic kidney disease Chronic kidney disease stage: stage 4 (severe) Qualified Code(s): E11.22 - Type 2 diabetes mellitus with diabetic chronic kidney disease; N18.4 - Chronic kidney disease, stage 4 (severe)
[2018-02-10] MEDS: Latanoprost 0.005% Opth Drops 2.5 ML Bottle EACH EYE SCH (17:43)
[2018-02-11] MEDS: Piperacil/Tazo 2.25 GM Premix 50 ML IV.SIG SCH ×4 (04:42→23:19)
[2018-02-11] MEDS: Dorzolamide 2% Opth Drops 10 ML Bottle EACH EYE SCH ×4 (09:00→18:10)
[2018-02-11] MEDS: Brimonidine 0.2% Opth Drops 5 ML Bottle EACH EYE SCH ×3 (09:00→18:10)
[2018-02-11] MEDS: Senna/Docusate Sodium 8.6/50 MG Tablet PO SCH ×2 (09:20→21:22)
[2018-02-11] MEDS: Gabapentin 300 MG Capsule PO SCH (09:20)
[2018-02-11] MEDS: Escitalopram 10 MG Tablet PO SCH (09:20)
[2018-02-11] MEDS: Metoprolol Tartrate 25 MG Tablet PO SCH ×2 (09:20→21:21)
[2018-02-11] MEDS: Insulin NovoLOG Aspart Correctional Sugar Inj SQ SCH ×5 (09:30→21:23)
--- NOTE | 2018-02-11 10:50 | P.PNIM ---
Subjective Interval history: Sitting up eating breakfast. States that he has no chest pain. Pleasantly confused this morning. Physical Exam Vital signs: Vital Signs 02/10/18 12:00 02/10/18 13:42 02/10/18 16:00 Temperature 97.2 F L Pulse Rate 68 80 76 Respiratory Rate 22 Blood Pressure 155/71 H Pulse Oximetry 98 02/10/18 17:00 02/10/18 19:00 02/10/18 20:00 Temperature 97.0 F L 97.9 F Pulse Rate 78 76 76 Respiratory Rate 20 16 Blood Pressure 171/77 H 173/84 H Pulse Oximetry 99 100 02/10/18 23:00 02/11/18 00:00 02/11/18 03:00 Temperature 98.9 F 98.0 F Pulse Rate 80 72 84 Respiratory Rate 18 18 18 Blood Pressure 144/75 H 161/76 H Pulse Oximetry 99 98 02/11/18 04:00 02/11/18 08:05 Temperature Pulse Rate 84 Respiratory Rate 18 Blood Pressure Pulse Oximetry 95 Intake & Output 02/10/18 02/11/18 02/11/18 18:59 06:59 18:59 Intake Total 480 / 480 460 / 460 Output Total 1200 / 1200 1000 / 1000 Balance -720 / -720 -540 / -540 Weight 88.4 kg Intake: IV 100 / 100 100 / 100 Zosyn 2.25 GM Premix 50 ML @ 100 / 100 100 / 100 100 mls/hr IV.SIG Q6H YON Rx#: [id number] Oral 380 / 380 360 / 360 Output: Urine 1200 / 1200 1000 / 1000 Other: Date of Last Bowel Movement 02/08/18 02/10/18 # Bowel Movements 0 1 Narrative: GENERAL: This is a well-nourished, well-developed patient, extremely sleepy, CARDIOVASCULAR: Regular rate and rhythm without murmurs, gallops, or rubs. RESPIRATORY: Few bibasilar crackles GASTROINTESTINAL: Abdomen soft, non-tender, nondistended. Normal active bowel sounds MUSCULOSKELETAL: Extremities without clubbing, cyanosis, or edema. NEURO: Alert and awake to person eating breakfast pleasantly confused. Results - Labs CBC & Chem 7: 02/10/18 08:38 02/10/18 08:38 Laboratory Results - last 24 hr 02/10/18 02/10/18 02/10/18 08:30 08:38 08:38 Puncture Site Patient Temperature O2 Saturation ABG pH ABG pCO2 ABG pO2 ABG HCO3 ABG O2 Content ABG Base Excess ABG Methemoglobin Tye Test Hemoglobin Carboxyhemoglobin O2 Delivery Device Liter Flow Inspired O2 Critical Value Sodium Potassium Chloride Carbon Dioxide Anion Gap BUN Creatinine Estimated GFR POC Glucose Random Glucose Hemoglobin A1c 8.0 H Calcium Phosphorus Magnesium Total Bilirubin AST ALT Alkaline Phosphatase B-Natriuretic Peptide 657 H Total Protein Albumin Triglycerides 99 Cholesterol 86 L LDL Cholesterol, Calc 32 HDL Cholesterol 34.3 L Cholesterol/HDL Ratio 2.50 TSH Free T4 0.96 02/10/18 02/10/18 02/10/18 08:38 11:12 12:21 Puncture Site Right radial Patient Temperature 98.6 O2 Saturation 96 ABG pH 7.41 ABG pCO2 45 H ABG pO2 106 ABG HCO3 28 H ABG O2 Content 11.2 L ABG Base Excess 3.9 H ABG Methemoglobin 1.1 Tye Test Y Hemoglobin 8.1 L Carboxyhemoglobin 1.3 O2 Delivery Device Nasal cannula Liter Flow 3.00 Inspired O2 Not Reportable Critical Value No Sodium 141 Potassium 3.5 Chloride 105 Carbon Dioxide 28.1 Anion Gap 8 BUN 45 H Creatinine 2.62 H Estimated GFR 29 L POC Glucose 182 H Random Glucose 160 H Hemoglobin A1c Calcium 8.0 L Phosphorus 4.1 Magnesium 1.8 Total Bilirubin 0.3 AST 24 ALT 21 Alkaline Phosphatase 97 B-Natriuretic Peptide Total Protein 7.0 Albumin 2.3 L Triglycerides Cholesterol LDL Cholesterol, Calc HDL Cholesterol Cholesterol/HDL Ratio TSH 1.420 Free T4 02/10/18 02/10/18 02/11/18 16:45 22:34 08:15 Puncture Site Patient Temperature O2 Saturation ABG pH ABG pCO2 ABG pO2 ABG HCO3 ABG O2 Content ABG Base Excess ABG Methemoglobin Tye Test Hemoglobin Carboxyhemoglobin O2 Delivery Device Liter Flow Inspired O2 Critical Value Sodium Potassium Chloride Carbon Dioxide Anion Gap BUN Creatinine Estimated GFR POC Glucose 173 H 303 H 151 H Random Glucose Hemoglobin A1c Calcium Phosphorus Magnesium Total Bilirubin AST ALT Alkaline Phosphatase B-Natriuretic Peptide Total Protein Albumin Triglycerides Cholesterol LDL Cholesterol, Calc HDL Cholesterol Cholesterol/HDL Ratio TSH Free T4 Microbiology 02/05/18 01:35 Blood - Peripheral Aerobic Blood Culture - Final No growth in 5 days 02/05/18 01:35 Blood - Peripheral Anaerobic Blood Culture - Final No growth in 5 days 02/05/18 01:30 Blood - Peripheral Aerobic Blood Culture - Final No growth in 5 days 02/05/18 01:30 Blood - Peripheral Anaerobic Blood Culture - Final No growth in 5 days - Procedures NONE Assessment and Plan - Assessment (1) NSTEMI (non-ST elevated myocardial infarction) Code(s): I21.4 - Non-ST elevation (NSTEMI) myocardial infarction Status: Acute (2) Pulmonary edema Code(s): J81.1 - Chronic pulmonary edema Status: Acute (3) PNA (pneumonia) Code(s): J18.9 - Pneumonia, unspecified organism Status: Acute (4) DM (diabetes mellitus) Code(s): E11.9 - Type 2 diabetes mellitus without complications Status: Acute - Plan 1. NSTEMI: Asymptomatic. Trop elevated, on admission no acute EKG changes, no c/o chest pain, possibly due to pulmonary edema/renal dysfunction with chronic kidney disease stage IV. Continue home Eliquis/ASA. Consult Cardiology , Dr. Prieto appreciate recommendations. Continue Eliquis, aspirin, lipitor, lopressor, yennifer held due to DOMINGO; cardiology recommends medical management due to DOMINGO superimposed on chronic kidney disease stage IV, dementia On Telemetry monitoring. We will restart Norvasc for better blood pressure control due to YENNIFER being held due to acute kidney injury 2. Pulmonary Edema: CXR w/ pulmonary edema, images reviewed, BNP 944 n admission, s/p Lasix 40mg IV in ER. Echo to eval for cardiomyopathy, continue w/ diuresis-caution w/ renal function. EF of 45-50% Monitor I/O. Weaned off BIPAP, monitor O2. O2 supplement keep O2 sat> 92 %, currently wean from 3 L to 2 L 4. Suspect hypoxia encephalopathy yesterday Hold Risperdal and Restoril. Avoid sedating medication. 5. Aspiration PNA: outpatient CXR 02/04/18 w/ bibasilar infiltrates (report in chart), started on Levaquin at [facility], daughter reports possible aspiration. WBC 15 on presentation. Will start IV Abx for likely PNA. Consult Speech for swallow evaluatiom and advance diet per ST recommendations. Currently passed swallow evaluation and is on regular diet with thin liquids. 6. DM type II: Sliding scale w/ Accu-Cheks. Labile blood sugars will continue to monitor. Start the patient on Levemir 7. Acute kidney injury superimposed on chronic kidney disease stage IV continue monitor closely on diuretics and avoid nephrotoxins. 8. Dementia, chronic, resume home medication Aricept 9. DVT Prophylaxis: Eliquis Discharge Planning: Back to correction facility in the morning if O2 remained stable and blood pressures better controlled overnight. (2) Pulmonary edema Qualifiers: Chronicity: acute Qualified Code(s): J81.0 - Acute pulmonary edema (3) PNA (pneumonia) Qualifiers: Pneumonia type: aspiration pneumonia Aspiration pneumonia type: unspecified Laterality: bilateral Lung location: unspecified part of lung Qualified Code(s ): J69.0 - Pneumonitis due to inhalation of food and vomit (4) DM (diabetes mellitus) Qualifiers: Diabetes mellitus type: type 2 Diabetes mellitus senior consulting manager insulin use: without long-term use Diabetes mellitus complication status: with kidney complications Diabetes mellitus complication detail: with chronic kidney disease Chronic kidney disease stage: stage 4 (severe) Qualified Code(s): E11.22 - Type 2 diabetes mellitus with diabetic chronic kidney disease; N18.4 - Chronic kidney disease, stage 4 (severe)
[2018-02-11] MEDS: amLODIPine 10 MG Tablet PO SCH (12:02)
[2018-02-11] MEDS: Collagenase Oint 30 GM Tube TOPICAL SCH (12:03)
[2018-02-11] MEDS: Timolol 0.5% Drops 5 ML Bottle EACH EYE SCH ×2 (12:04→21:23)
[2018-02-11] MEDS: Latanoprost 0.005% Opth Drops 2.5 ML Bottle EACH EYE SCH (18:10)
[2018-02-11] MEDS ORDERED: Insulin Detemir Inj 1,000 UNIT/10 ML Vial SQ SCH ×2 (21:00)
[2018-02-11] MEDS: Ferrous Sulfate 325 MG Tablet PO SCH (21:21)
--- NOTE | 2018-02-11 21:21 | P.PNCA ---
Subjective Interval history: alert in nad Physical Exam Vital signs: Vital Signs 02/10/18 23:00 02/11/18 00:00 02/11/18 03:00 Temperature 98.9 F 98.0 F Pulse Rate 80 72 84 Respiratory Rate 18 18 18 Blood Pressure 144/75 H 161/76 H Pulse Oximetry 99 98 02/11/18 04:00 02/11/18 08:00 02/11/18 08:05 Temperature 97.5 F L Pulse Rate 84 75 Respiratory Rate 18 18 Blood Pressure 183/84 H Pulse Oximetry 98 95 02/11/18 10:00 02/11/18 11:00 02/11/18 12:00 Temperature 97.3 F L Pulse Rate 75 74 Respiratory Rate 18 Blood Pressure 160/70 H 174/79 H Pulse Oximetry 99 02/11/18 16:00 02/11/18 20:00 Temperature 97.7 F 97.8 F Pulse Rate 80 68 Respiratory Rate 16 18 Blood Pressure 155/71 H 169/79 H Pulse Oximetry 99 98 Intake & Output 02/11/18 02/11/18 02/12/18 06:59 18:59 06:59 Intake Total 460 / 460 1010 / 1010 Output Total 1000 / 1000 1400 / 1400 Balance -540 / -540 -390 / -390 Weight 88.4 kg Intake: IV 100 / 100 50 / 50 Zosyn 2.25 GM Premix 50 ML @ 100 / 100 50 / 50 100 mls/hr IV.SIG Q6H YON Rx#: [id number] Oral 360 / 360 960 / 960 Output: Urine 1000 / 1000 1400 / 1400 Other: Date of Last Bowel Movement 02/10/18 02/11/18 # Bowel Movements 1 # Incontinent Bowel Movements 4 Assessment and Plan - Assessment (1) Dementia Code(s): F03.90 - Unspecified dementia without behavioral disturbance Status: Acute (2) ARF (acute renal failure) Code(s): N17.9 - Acute kidney failure, unspecified Status: Acute (3) Acute dyspnea Code(s): R06.00 - Dyspnea, unspecified Status: Acute (4) ACS (acute coronary syndrome) Code(s): I24.9 - Acute ischemic heart disease, unspecified Status: Acute (5) NSTEMI (non-ST elevated myocardial infarction) Code(s): I21.4 - Non-ST elevation (NSTEMI) myocardial infarction Status: Acute (6) PNA (pneumonia) Code(s): J18.9 - Pneumonia, unspecified organism Status: Acute (7) DM (diabetes mellitus) Code(s): E11.9 - Type 2 diabetes mellitus without complications Status: Acute - Plan 1.) NSTEMI - assymptomatic, on eliquis, continue aspirin, lipitor, lopressor, antione held due to arf; rec medical man due to arf, dementia (6) PNA (pneumonia) Qualifiers: Pneumonia type: aspiration pneumonia Aspiration pneumonia type: unspecified Laterality: bilateral Lung location: unspecified part of lung Qualified Code(s ): J69.0 - Pneumonitis due to inhalation of food and vomit (7) DM (diabetes mellitus) Qualifiers: Diabetes mellitus type: type 2 Diabetes mellitus keno terminal operator insulin use: without nursing home use Diabetes mellitus complication status: with kidney complications Diabetes mellitus complication detail: with chronic kidney disease Chronic kidney disease stage: stage 4 (severe) Qualified Code(s): E11.22 - Type 2 diabetes mellitus with diabetic chronic kidney disease; N18.4 - Chronic kidney disease, stage 4 (severe)
[2018-02-12] MEDS: Piperacil/Tazo 2.25 GM Premix 50 ML IV.SIG SCH ×2 (04:06→12:55)
[2018-02-12] MEDS: Ferrous Sulfate 325 MG Tablet PO SCH (08:12)
[2018-02-12] MEDS: amLODIPine 10 MG Tablet PO SCH (08:12)
[2018-02-12] MEDS: Gabapentin 300 MG Capsule PO SCH (08:12)
[2018-02-12] MEDS: Escitalopram 10 MG Tablet PO SCH (08:12)
[2018-02-12] MEDS: Metoprolol Tartrate 25 MG Tablet PO SCH (08:13)
[2018-02-12] MEDS: Senna/Docusate Sodium 8.6/50 MG Tablet PO SCH (08:13)
[2018-02-12] MEDS: Furosemide 40 MG Tablet PO SCH ×2 (08:13→11:00)
[2018-02-12] MEDS: Collagenase Oint 30 GM Tube TOPICAL SCH (08:16)
[2018-02-12] MEDS: Dorzolamide 2% Opth Drops 10 ML Bottle EACH EYE SCH ×2 (08:16→13:01)
[2018-02-12] MEDS: Brimonidine 0.2% Opth Drops 5 ML Bottle EACH EYE SCH ×2 (08:16→13:00)
[2018-02-12] MEDS ORDERED: Insulin Detemir Inj 1,000 UNIT/10 ML Vial SQ SCH (08:39)
[2018-02-12] MEDS ORDERED: Allopurinol 100 MG Tablet PO SCH (09:00)
--- NOTE | 2018-02-12 09:28 | P.DS ---
Date of admission: 02/05/18 03:50 Primary care physician: Lilian Felix DO Brief History from admission: This is an 82-year-old male with a PMH of HTN, Hyperlipidemia, A. fib on Eliquis , Dementia, Glaucoma and DM who was sent to the ER from SNF due to hypoxia. Pt w/ recent outpatient CXR 02/04/18, found to have bibasilar infiltrates (report in chart) and started on Levaquin at SNF. Today, pt noted to have worsening SOB w/ O2 sat 70's upon EMS arrival. Daughter at bedside, states she works at SNF where pt resides, notes episodes of "aspiration" after eating. On arrival, O2 sat 94% on NRM w/ increased work of breathing, placed on BIPAP w/ O2 sat 100% . BRITNEY 180/75, HR 80, Temp 99.0. Creatinine 2.67, previously 2.60 on 02/04/18, 1.61 on 07/02/17. Trop 1.07. BNP 944. WBC 15.6. DS: Diagnosis - Discharge Diagnosis (1) NSTEMI (non-ST elevated myocardial infarction) Status: Acute Diagnosis: Principal (2) Pulmonary edema Status: Resolved Diagnosis: Secondary (3) PNA (pneumonia) Status: Resolved Diagnosis: Secondary (4) DM (diabetes mellitus) Status: Chronic Diagnosis: Secondary DS: Summary Hospital Course: These are the medical issues addressed during this hospitalization: 1. NSTEMI: Asymptomatic. Trop elevated, on admission no acute EKG changes, no c/o chest pain, possibly due to pulmonary edema/renal dysfunction with chronic kidney disease stage IV. Continue home Eliquis/ASA. Consult Cardiology , Dr. Prieto appreciate recommendations. Continue Eliquis, aspirin, lipitor, lopressor, yennifer held due to DOMINGO; cardiology recommends medical management due to DOMINGO superimposed on chronic kidney disease stage IV, dementia On Telemetry monitoring during the hospitalization. We restarted Norvasc for better blood pressure control due to YENNIFER being held due to acute kidney injury 2. Pulmonary Edema: CXR w/ pulmonary edema, images reviewed, BNP 944 n admission, s/p Lasix 40mg IV in ER. Echo to eval for cardiomyopathy, continue w/ diuresis-caution w/ renal function. EF of 45-50% Monitor I/O. Weaned off BIPAP, monitor O2. O2 supplement keep O2 sat> 92 %, currently wean to 2 L 4. Suspect hypoxia encephalopathy initially which has resolved Hold Risperdal and Restoril to prevent further sedation. Avoid sedating medication. 5. Aspiration PNA: outpatient CXR 02/04/18 w/ bibasilar infiltrates (report in chart), started on Levaquin at SNF, daughter reports possible aspiration. WBC 15 on presentation. IV Abx Zosyn started for likely PNA and completed course. Consult Speech for swallow evaluatiom and advance diet per ST recommendations. Currently passed swallow evaluation and is on regular diet with thin liquids. 6. DM type II: Sliding scale w/ Accu-Cheks. Labile blood sugars will continue to monitor. Start the patient on Levemir 7. Acute kidney injury superimposed on chronic kidney disease stage IV continue monitor closely on diuretics and avoid nephrotoxins. 8. Dementia, chronic, resume home medication Aricept 9. DVT Prophylaxis: Eliquis At this time, patient has gained maximum benefit from hospitalization and is ready to be discharged back to nursing facility - Time Spent with Patient Total time spent providing and/or coordinating discharge services: Less than 30 minutes Exam Vital signs: Vital Signs 02/11/18 10:00 02/11/18 11:00 02/11/18 12:00 Temperature 97.3 F L Pulse Rate 75 74 Respiratory Rate 18 Blood Pressure 160/70 H 174/79 H Pulse Oximetry 99 02/11/18 16:00 02/11/18 20:00 02/12/18 00:00 Temperature 97.7 F 97.8 F 98.5 F Pulse Rate 80 81 76 Respiratory Rate 16 18 17 Blood Pressure 155/71 H 169/79 H 144/62 H Pulse Oximetry 99 98 98 02/12/18 04:00 Temperature 98.0 F Pulse Rate 77 Respiratory Rate 17 Blood Pressure 152/64 H Pulse Oximetry 100 Intake & Output 02/11/18 02/12/18 02/12/18 18:59 06:59 18:59 Intake Total 1060 / 1060 290 / 290 Output Total 1400 / 1400 1200 / 1200 Balance -340 / -340 -910 / -910 Weight 83.4 kg Intake: IV 100 / 100 50 / 50 Zosyn 2.25 GM Premix 50 ML @ 100 / 100 50 / 50 100 mls/hr IV.SIG Q6H YON Rx#: [id number] Oral 960 / 960 240 / 240 Output: Urine 1400 / 1400 1200 / 1200 Other: Date of Last Bowel Movement 02/11/18 02/11/18 # Bowel Movements 1 # Incontinent Bowel Movements 4 Narrative: GENERAL: This is a well-nourished, well-developed patient, in no apparent distress pleasantly confused. CARDIOVASCULAR: Regular rate and rhythm RESPIRATORY: Clear to auscultation. Breath sounds equal bilaterally. No wheezes , rales, or rhonchi. GASTROINTESTINAL: Abdomen soft, non-tender, nondistended. Normal active bowel sounds MUSCULOSKELETAL: Extremities without clubbing, cyanosis, or edema. NEURO: Oriented to person and place but not to time or situation follow simple directions. Results Procedures completed during hospitalization: NONE Labs on day of discharge: Labs from last 24 hours 02/11/18 02/11/18 02/11/18 19:59 18:05 13:05 POC Glucose 270 H 219 H 225 H - Impressions ITS Impressions Chest X-Ray 02/05/18 01:27 CONCLUSION: Mild consolidation and small effusions at each lung base probably related to mild failure. Head CT 02/08/18 00:00 CONCLUSION: 1. Atrophy otherwise negative for acute process . Discharge Plan - Discharge Disposition Patient Disposition: Discharge to SNF - Discharge Condition Condition: Fair - Discharge Order Discharge Orders: Discharge Order (Routine); Ordered 02/12/18 Ordered By: Dana Parra - Discharge Details Anticipated Discharge Date: 02/12/18 - Physicians Team Primary Care Provider: Lilian Felix Attending Provider: Dana Parra Other Providers: Kailash Prieto MD
--- NOTE | 2018-02-12 10:17 | P.PNCA ---
Subjective Interval history: asleep in nad Physical Exam Vital signs: Vital Signs 02/11/18 11:00 02/11/18 12:00 02/11/18 16:00 Temperature 97.3 F L 97.7 F Pulse Rate 75 74 80 Respiratory Rate 18 16 Blood Pressure 174/79 H 155/71 H Pulse Oximetry 99 99 02/11/18 20:00 02/12/18 00:00 02/12/18 04:00 Temperature 97.8 F 98.5 F 98.0 F Pulse Rate 81 76 77 Respiratory Rate 18 17 17 Blood Pressure 169/79 H 144/62 H 152/64 H Pulse Oximetry 98 98 100 02/12/18 08:00 Temperature 97.9 F Pulse Rate 79 Respiratory Rate 18 Blood Pressure 184/79 H Pulse Oximetry 98 Intake & Output 02/11/18 02/12/18 02/12/18 18:59 06:59 18:59 Intake Total 1060 / 1060 290 / 290 Output Total 1400 / 1400 1200 / 1200 Balance -340 / -340 -910 / -910 Weight 83.4 kg Intake: IV 100 / 100 50 / 50 Zosyn 2.25 GM Premix 50 ML @ 100 / 100 50 / 50 100 mls/hr IV.SIG Q6H YON Rx#: [id number] Oral 960 / 960 240 / 240 Output: Urine 1400 / 1400 1200 / 1200 Other: Date of Last Bowel Movement 02/11/18 02/11/18 # Bowel Movements 1 # Incontinent Bowel Movements 4 Assessment and Plan - Assessment (1) Dementia Code(s): F03.90 - Unspecified dementia without behavioral disturbance Status: Acute (2) ARF (acute renal failure) Code(s): N17.9 - Acute kidney failure, unspecified Status: Acute (3) Acute dyspnea Code(s): R06.00 - Dyspnea, unspecified Status: Acute (4) ACS (acute coronary syndrome) Code(s): I24.9 - Acute ischemic heart disease, unspecified Status: Acute (5) NSTEMI (non-ST elevated myocardial infarction) Code(s): I21.4 - Non-ST elevation (NSTEMI) myocardial infarction Status: Acute (6) PNA (pneumonia) Code(s): J18.9 - Pneumonia, unspecified organism Status: Resolved (7) DM (diabetes mellitus) Code(s): E11.9 - Type 2 diabetes mellitus without complications Status: Chronic - Plan 1.) NSTEMI - assymptomatic, on eliquis, continue aspirin, lipitor, lopressor, antione held due to arf; rec medical man due to arf, dementia (6) PNA (pneumonia) Qualifiers: Pneumonia type: aspiration pneumonia Aspiration pneumonia type: unspecified Laterality: bilateral Lung location: unspecified part of lung Qualified Code(s ): J69.0 - Pneumonitis due to inhalation of food and vomit (7) DM (diabetes mellitus) Qualifiers: Diabetes mellitus type: type 2 Diabetes mellitus terminal manager insulin use: without terminal manager use Diabetes mellitus complication status: with kidney complications Diabetes mellitus complication detail: with chronic kidney disease Chronic kidney disease stage: stage 4 (severe) Qualified Code(s): E11.22 - Type 2 diabetes mellitus with diabetic chronic kidney disease; N18.4 - Chronic kidney disease, stage 4 (severe)
[2018-02-12] MEDS: Insulin NovoLOG Aspart Correctional Sugar Inj SQ SCH ×2 (11:04→12:56)
== END 2018-02-12 17:57 ==
LOC: NEPE 01:02 → NEDA 03:50 → HCIS 14:30 → N04 02-08 16:04
PROVIDERS: ADMIT Family Medicine; ATTEND Family Medicine